=== PATIENT | male | born 1985 | race Caucasian/White ===

== ENCOUNTER 2018-02-19 12:39 | Inpatient (IN) | payer MEDICAID, SELFPAY ==
[2018-02-19 12:40] VITALS: BP 123/90; PULSE 118; RESP 16; TEMP 35.8; O2SAT 95; BMI 28.3
--- NOTE | 2018-02-19 13:11 | CT_ITS ---
STUDY: CT ABDOMEN AND PELVIS WITHOUT CONTRAST REASON FOR EXAM: Male, 32 years old. Nausea, vomiting, chills RADIATION DOSAGE (If Supplied By Facility): CTDIvol = ( 21.50 ) mGy, DLP = ( 1198.02 ) mGycm TECHNIQUE: Transaxial images were obtained from the dome of the diaphragm to the symphysis pubis without oral contrast, and without intravenous contrast. Sagittal and coronal images were reconstructed. Individualized dose optimization techniques were used for this CT. COMPARISON: None. FINDINGS: The visualized lung bases are unremarkable. The visualized portions of the heart are within normal limits. Evaluation of the abdominal viscera is limited in the absence of intravenous contrast. There is decreased attenuation of the liver consistent with steatosis. There is focal fatty sparing adjacent to the gallbladder fossa. Normal gallbladder and extrahepatic biliary system. Normal spleen. There is a small splenule. Normal pancreas. Normal bilateral adrenal glands. Normal right kidney. There is a 3 mm nonobstructing calculus within the inferior pole of the left kidney. Normal visualized stomach. There is fluid distended small bowel within the left abdomen. The distal small bowel is decompressed. The discrete transition zone is not clearly visualized. Colon is largely decompressed. There is some fluid within the rectum. There is non-visualization of the appendix. Normal abdominal aorta. Normal inferior vena cava. Normal retroperitoneum. Normal urinary bladder. Normal abdominal wall. Tarlov cysts are seen within the sacrum. CT/Abdomen/Pelvis without Cont IMPRESSION: Fluid distention of the proximal small bowel with decompressed distal small bowel. Partial/developing small bowel obstruction cannot be excluded. The transition point is not visualized. Hepatic steatosis. Additional findings, as detailed above. Electronically Signed: Kehinde Rowe DO at 14:52 EDT Tel , Service support ,
--- NOTE | 2018-02-19 13:39 | ED.DCSUM_ITS ---
- ER Visit Summary Date of Service: 02/19/18 Chief Complaint: Abdominal pain, nausea, vomiting, diarrhea History of Present Illness: The patient is a 32 M who presents with the above symptoms. Started today. He states he has vomited multiple times at home. He has crushing pain in the right side of his abdomen. He is also been having some diarrhea. No blood in either the vomit or the diarrhea. He denies any urinary symptoms. He took nothing for it at home. He denies fevers. He has had appendectomy in the past when he was child. Physical Examination: Vital signs reviewed. HEENT exam unremarkable. Heart is tachycardic and regular rhythm without murmurs. Lungs are clear to auscultation. Abdomen is soft with right-sided tenderness to palpation. Extremities reveal no edema. Skin exam normal. Neurologic exam normal. Test Results: White blood cell count 15.7. Total bilirubin 1.7. ALT 72. CAT scan reveals evidence of small bowel obstruction with dilated proximal bowel and compressed distal bowel. Emergency Department Course and Treatment: Patient was initially given Bentyl and Zofran. I did give him IV fluids for the tachycardia. After the finding of small bowel obstruction a an NG was placed. He did have some local trauma to the nose during this. At this point the patient will be admitted to the hospital after discussion with the hospitalist. Treatment Plan: [] Disposition: Admit Impression: Small bowel obstruction This note was generated with [employer] dictation software. It may contain incorrect words, spelling, and punctuation that were not noted in review of the chart prior to signing ED Disposition - Plan for ED Patient: Chief Complaint: Nausea/Vomiting/Diarrhea Referrals: Jose Esquivel DO [Primary Care Provider] -
[2018-02-19 13:45] LABS: Absolute Lymphocyte Count 1.41 X10^3/ul (0.83-4.51); Absolute Neutrophil Count 13.6 X10^3/uL (2.0-7.7); Basophil# 0.02 X10^3/uL; Basophil% 0.1 % (0-1); Eosinophil# 0.01 X10^3/uL; Eosinophils% 0.1 % (0-5); Hematocrit 52.6 % (40-54); Hemoglobin 17.9 g/dl (13.0-16.5); Lymphocyte # 1.41 X10^3/ul (4.0); Mean Corpuscular Hgb 29.7 pg (27.0-32.0); Mean Corpuscular Volume 87.4 fL (80-94); Mean Platelet Vol. 10.7 fl (6.2-12.0); Monocyte# 0.64 X10^3/uL; Monocyte% 4.1 % (0-10); Neutrophil # 13.64 X10^3/uL (2.7-7.7); Neutrophil % 86.6 % (47-70); Platelet Count 248 K/mm3 (150-450); RBC Distribution Width CV 13.4 % (11.6-14.6); RBC Distribution Width SD 43.1 fl (35.1-43.9); Red Blood Count 6.02 M/mm3 (4.6-6.2); White Blood Count 15.7 K/mm3 (4.4-11.0)
[2018-02-19] MEDS: 0.9% Normal Saline 1,000 ML 1000 ML IV (13:50)
[2018-02-19] MEDS: Dicyclomine 20 MG/2 ML Vial IM (13:50)
[2018-02-19] MEDS: Ondansetron 4 MG/2 ML Vial IV (13:50)
[2018-02-19 13:52] LABS: POSITIVE COUNT NO; POSITIVE DIFFERENTIAL NO; POSITIVE MORPHOLOGY NO
[2018-02-19 13:58] LABS: ALB/GLOB Ratio 0.8 RATIO (0.9-2.4); AST(SGOT) 27 U/L (15-37); Alanine Aminotransfer ALT/SGPT 72 U/L (16-61); Albumin, Serum 4.8 g/dL (3.2-5.0); Alkaline Phosphatase 78 U/L (45-117); Anion Gap 11 (5-15); BUN 12 mg/dL (7-18); BUN/Creat Ratio 10.7 RATIO (10-20); Calcium,Total 10.4 mg/dL (8.5-10.1); Chloride 107 mmol/L (98-107); Creatinine, Serum 1.12 mg/dL (0.70-1.30); EST Glomerular Filtration Rate 80 mL/min (>60); Est Glom Filt Rate - Afr Amer 96 mL/min (>60); Estimated Creatinine Clearance 117.12 ml/min; Globulin 5.7 g/dL (2.2-4.2); Glucose 124 mg/dL (74-106); Lipase 90 U/L (73-393); Potassium 4.5 mmol/L (3.5-5.1); Protein, Total 10.5 g/dL (6.4-8.2); Sodium Level 137 mmol/L (136-145)
--- NOTE | 2018-02-19 15:00 | RAD_ITS ---
STUDY: X-RAY - ABDOMEN/PELVIS REASON FOR EXAM: Male, 32 years old. Nasogastric tube placement. TECHNIQUE: Frontal portable upright abdomen COMPARISON: None. FINDINGS: Nasogastric tube tip lies near the esophagogastric junction and may be slightly entering the gastric fundus. The proximal port lies within the distal 3rd of the esophagus. Extension of the nasogastric tube further into the gastric fundus is recommended. No other acute lung base or upper abdominal process is evident. RAD/Abdomen Single View (Portable) IMPRESSION: A nasogastric tube tip lies near the esophagogastric junction and extension further into the stomach is recommended. Electronically Signed: Yosi Koroma, at 16:21 EDT Tel , Service support ,
[2018-02-19 15:01] VITALS: BP 143/95; PULSE 72; RESP 18; TEMP 36.8; O2SAT 98
--- NOTE | 2018-02-19 15:56 | NURSING ---
DR HAIDER IN WITH PATIENT
--- NOTE | 2018-02-19 16:02 | NURSING ---
MED SURG SBO MELIZA
--- NOTE | 2018-02-19 16:16 | HP.PCM_ITS ---
<Timbo Fuchs - Last Filed: 02/19/18 16:12> Problem List (1) SBO (small bowel obstruction) Status: Acute (2) Anxiety Status: Chronic (3) Depression Status: Chronic History of Present Illness Date of Admission: 02/19/18 Chief Complaint: abdominal pain The patient is a 32 year old M with a hx of anxiety and depression who presents to the ER with complain of abdominal pain. Pain began this AM at about 0500, he woke up with it. Pain is located over the RLQ. It has continued throughout the day. He has been nauseous and vomited at least 4 times. He has had 9-10 episodes of diarrhea. He has not been able to eat or drink anything today. He last ate last evening - crackers. He came to the ER and has had an NG tube placed with relief of his nausea, though he still has significant RLQ pain. CT shows early SBO. He denies hx of bowel obstruction. He has had an appendectomy when he was a child, denies any other abdominal surgeries. Also reports some chills at home. No flatus currently. [] Past Medical History Past Medical History (Chronic Problems): Chronic Problems Anxiety (Chronic) Depression (Chronic) Allergies onion Allergy (Verified 02/19/18 12:42) Hives PAPER TAPE Allergy (Uncoded 02/19/18 12:42) Rash SPIDERS Allergy (Uncoded 02/19/18 12:42) Unknown Home Medications: Ambulatory Orders Medication Instructions Recorded Gabapentin [Neurontin] 100 mg PO TID 02/19/18 Mirtazapine [Mirtazapine] 15 mg PO QHS 02/19/18 Propranolol HCl [Inderal (Beta 20 mg PO BID 02/19/18 Irena)] Sertraline HCl [Zoloft] 200 mg PO DAILY 02/19/18 Surgical History: appendectomy Psychiatric History: Anxiety, Depression Lives: Alone Smoking Status: Never smoker Tobacco Use: Non-smoker Alcohol: None Drugs: None - *Family History Maternal History Items: Heart Disease Paternal History Items: No pertinent history Review of Systems Constitutional: Reports: Chills. Denies: Fever, Weight Change HEENT: Denies: Head Aches, Sinus Congestion, Sinus Drainage Cardiovascular: Denies: Chest Pain, Palpitations Respiratory: Denies: Cough, Shortness of breath at rest, Sputum production Gastrointestinal: Reports: Abdominal Pain, Diarrhea, Nausea, Vomiting Genitourinary: Denies: Dysuria Musculoskeletal: Denies: Joint Pain, Joint Tenderness Skin: Denies: Rash, Wounds Neurological: Denies: Numbness, Tingling, Focal weakness Psychiatric: Denies: Anxiety, Depression, Homicidal Ideations, Suicidal Ideations Hematologic/ Lymphatic: Denies: Easy Bruising, Easy Bleeding VTE Information - Inpt Only VTE Present on Admission: No VTE Mechan Device Prophylaxis: SCD's Patient Problems: Active and Suspected Problems SBO (small bowel obstruction) (Acute) - Physical Exam General: Alert, Oriented x3, Cooperative HEENT: Atraumatic, PERRLA, EOMI, Normocephalic, - - bleeding BL nares 2/2 traumatic NG insertion. Neck: Supple, No JVD, Negative Carotid Bruits Lungs: Clear to auscultation, Normal air movement Cardiovascular: Regular rate, No murmurs Abdomen: Bowel Sounds Present, Soft, Tender - RLQ tenderness without guarding. Extremities: No edema, Capillary Refill Less than 3 Seconds Skin: No rashes, No breakdown Musculoskeletal: No Tenderness to Palpation of Joints or Extremities Neurological: Cranial nerves II-XII grossly intact Psych/Mental Status: Normal Affect, Appropriate, Alert and oriented to time, place, person, mood and affect Vital Signs Temp Pulse Resp BP Pulse Ox 98.2 F 72 18 143/95 H 98 02/19/18 15:01 02/19/18 15:01 02/19/18 15:01 02/19/18 15:01 02/19/18 15:01 Oxygen Delivery Method Room Air Weight: 238 lb 15.697 oz Body Mass Index (BMI) 28.3 Laboratory Tests Past 24 Hrs 02/19/18 02/19/18 13:35 13:35 WBC 15.7 H RBC 6.02 Hgb 17.9 H Hct 52.6 MCV 87.4 MCH 29.7 MCHC 34.0 RDW 13.4 RDW Differential 43.1 Plt Count 248 MPV 10.7 Immature Gran % (Auto) 0.100 Neut % (Auto) 86.6 H Lymph % (Auto) 9.0 L [place] % (Auto) 4.1 Eos % (Auto) 0.1 Baso % (Auto) 0.1 Absolute Neuts (auto) 13.6 H Absolute Lymphs (auto) 1.41 Total Counted Not Reportable Sodium 137 Potassium 4.5 Chloride 107 Carbon Dioxide 19.0 L Anion Gap 11 BUN 12 Creatinine 1.12 Estim Creat Clear Calc 117.12 Est GFR (MDRD) Af Amer 96 Est GFR (MDRD) Non-Af 80 BUN/Creatinine Ratio 10.7 Glucose 124 H Calcium 10.4 H Total Bilirubin 1.70 H AST 27 ALT 72 H Alkaline Phosphatase 78 Total Protein 10.5 H Albumin 4.8 Globulin 5.7 H Albumin/Globulin Ratio 0.8 L Lipase 90 Assessment/Plan All Active Problems SBO (small bowel obstruction) (Acute) 1. Early SBO - NG in place. NPO. Bowel sounds are hypoactive, pain is RLQ, tender over the same. IV fluids. IV pepcid. supportive care. He does remain tachycardic and has a significant leukocytosis. Tbili is elevated, ALT is elevated. Lipase negative. 2. Hx anx/depression - on multiple home meds, prior homicidal/suicidal ER visits. Restart as soon as possible. Will have to be held for now. DVT ppx: SCDs This patient was seen by Timbo Fuchs PA-C under the supervision of Dr. Arriola. <Miguel Angel Arriola - Last Filed: 02/19/18 17:25> Problem List (1) SBO (small bowel obstruction) Status: Acute History of Present Illness The patient is a 32 year old M developed acute abdominal pain today. Patient presented to the emergency room and was found to have small bowel obstruction on CT. Patient had NG tube placed which was traumatic and did have it with that but patient notes no significant change in his symptoms at this time. Patient states that he is probably has some small bowel obstructions in the past and was told to eat properly and those resolved spontaneously. Patient never required hospitalization for small bowel obstruction before. Patient did have an appendectomy when he was young child but no additional abdominal surgeries. [] Past Medical History Allergies onion Allergy (Verified 02/19/18 12:42) Hives PAPER TAPE Allergy (Uncoded 02/19/18 12:42) Rash SPIDERS Allergy (Uncoded 02/19/18 16:23) varies depending on species Surgical History: appendectomy, - - Signs of the patient has had spontaneous pneumothoraces requiring decortication Psychiatric History: Anxiety, Depression Lives: Alone Smoking Status: Never smoker Tobacco Use: Non-smoker Alcohol: None Drugs: None - *Family History Maternal History Items: Heart Disease Paternal History Items: No pertinent history Review of Systems Constitutional: Denies: Fever, Weight Change Eyes: Denies: Blurred vision, Double vision HEENT: Denies: Head Aches, Sinus Congestion, Sinus Drainage Cardiovascular: Denies: Chest Pain, Palpitations Respiratory: Denies: Cough, Shortness of breath at rest, Sputum production Gastrointestinal: Reports: Abdominal Pain, Diarrhea, Nausea, Vomiting Genitourinary: Denies: Dysuria Musculoskeletal: Denies: Joint Pain, Joint Tenderness Skin: Denies: Rash, Wounds Neurological: Denies: Focal weakness, Numbness, Tingling Psychiatric: Denies: Anxiety, Depression, Homicidal Ideations, Suicidal Ideations Hematologic/ Lymphatic: Denies: Easy Bruising, Easy Bleeding VTE Information - Inpt Only VTE Present on Admission: No VTE Pharm Prophylaxis ordered?: Yes - Physical Exam General: Alert, Cooperative HEENT: Atraumatic, PERRLA, EOMI, Normocephalic Lungs: Clear to auscultation, Normal air movement Cardiovascular: Regular rate, Regular Rhythm, Normal S1, No murmurs Abdomen: Soft, Hypoactive Bowel Sounds, Distended, Tender Extremities: No edema, No Calf Tenderness Skin: No rashes, No breakdown Psych/Mental Status: Normal Affect, Appropriate Vital Signs Temp Pulse Resp BP Pulse Ox 36.7 C 121 H 18 131/88 H 99 02/19/18 16:51 02/19/18 16:51 02/19/18 16:51 02/19/18 16:51 02/19/18 16:51 Oxygen Delivery Method Room Air Weight: 108.8 kg Body Mass Index (BMI) 28.4 Assessment/Plan Patient seen and examined independently. Data reviewed. I agree with the above note by the physician medical receptionist assistant. 1. Small bowel obstruction * Likely related with adhesions from patient's prior abdominal surgery which was an appendectomy when he was a child. * Conservative management at this time which will be continuing the NG, n.p.o., IV fluids, IV analgesia and antiemetics. * General surgery will be case agent fails to progress. DW Dr. Armstrong, who will see the patient in consultation. Code Visit Inpatient E&M: 12263 Init Hosp L2
[2018-02-19 16:24] VITALS: BMI 28.3
[2018-02-19 16:48] VITALS: BMI 28.4
[2018-02-19 16:51] VITALS: BP 131/88; PULSE 121; RESP 18; TEMP 36.7; O2SAT 99
[2018-02-19] MEDS: 0.9% Normal Saline 1,000 ML 125 ML IV (17:13)
--- NOTE | 2018-02-19 17:21 | PCM.CONS.GEN ---
Reason for Consult Date of Consultation: 02/19/18 Reason for Consultation: Small bowel obstruction History of Present Illness: The patient is a 32 year old M who reports that he has been having abdominal distention with no gas for the past few days. He started having nausea and vomiting tube was placed. He is complaining of right lower quadrant pain but he says that it is improved right now and it is better than when he came in. He says he has been having some diarrhea but no flatus. He has a history of appendectomy. He also reports that he had a history of some intestinal blockage in the past which resolved without surgery. Past Medical History Past Medical History (Chronic Problems): Chronic Problems Anxiety (Chronic) Depression (Chronic) Allergies onion Allergy (Verified 02/19/18 12:42) Hives PAPER TAPE Allergy (Uncoded 02/19/18 12:42) Rash SPIDERS Allergy (Uncoded 02/19/18 16:23) varies depending on species Home Medications: Ambulatory Orders Medication Instructions Recorded Gabapentin [Neurontin] 100 mg PO TID 02/19/18 Mirtazapine [Mirtazapine] 15 mg PO QHS 02/19/18 Propranolol HCl [Inderal (Beta 20 mg PO BID 02/19/18 Irena)] Sertraline HCl [Zoloft] 200 mg PO DAILY 02/19/18 Surgical History: appendectomy Psychiatric History: Anxiety, Depression Lives: Alone Smoking Status: Never smoker Tobacco Use: Non-smoker Alcohol: None Drugs: None - *Family History Maternal History Items: Heart Disease Paternal History Items: No pertinent history Review of Systems Constitutional: Denies: Anorexia, Chills, Fever Eyes: Denies: Blurred vision HEENT: Denies: Difficulty Hearing, Difficulty Swallowing Cardiovascular: Denies: Chest Pain Respiratory: Denies: Cough, Shortness of Breath Gastrointestinal: Reports: Abdominal Pain, Diarrhea, Nausea, Vomiting Genitourinary: Denies: Dysuria Musculoskeletal: Denies: Joint Tenderness Skin: Denies: Jaundice Neurological: Denies: Difficulty swallowing Psychiatric: Denies: Anxiety, Depression Hematologic/ Lymphatic: Denies: Anemia Patient Problems: Active and Suspected Problems SBO (small bowel obstruction) (Acute) - Physical Exam General: Alert, Oriented x3, Cooperative HEENT: Atraumatic, EOMI Neck: Supple Lungs: Normal air movement Cardiovascular: Regular Rhythm, Tachycardic Abdomen: Soft, Distended, Tender - Tender in the right lower quadrant. No guarding or rebound. Musculoskeletal: No Muscle Wasting Neurological: Cranial nerves II-XII grossly intact Psych/Mental Status: Normal Affect, Appropriate Vital Signs Temp Pulse Resp BP Pulse Ox 98.1 F 121 H 18 131/88 H 99 02/19/18 16:51 02/19/18 16:51 02/19/18 16:51 02/19/18 16:51 02/19/18 16:51 Oxygen Delivery Method Room Air Weight: 239 lb 13.807 oz Body Mass Index (BMI) 28.4 Clinical Impression(s) from Imaging Studies Abdomen/Pelvis CT 02/19/18 13:11 IMPRESSION: Fluid distention of the proximal small bowel with decompressed distal small bowel. Partial/developing small bowel obstruction cannot be excluded. The transition point is not visualized. Hepatic steatosis. Additional findings, as detailed above. Electronically Signed: Kehinde Rowe, DO at 14:52 EDT Tel , Service support , KUB X-Ray 02/19/18 15:00 IMPRESSION: A nasogastric tube tip lies near the esophagogastric junction and extension further into the stomach is recommended. Electronically Signed: Yosi Koroma, at 16:21 EDT Tel , Service support , Assessment/Plan All Active Problems SBO (small bowel obstruction) (Acute) 32-year-old male small bowel obstruction 1. Patient reports he has not passed any gas in a few days but he has been having some diarrhea. He has right lower quadrant pain and abdominal distention. He says he has had an intestinal blockage which resolved without surgery. 2. Plan is to keep him n.p.o. and he has an NG tube in place. I will order acute abdominal series in the morning and keep him on IV fluids. If his pain her vital signs worsen he would have indication for surgery otherwise I will treat him conservatively for a few days to see if the bowel obstruction passes. Wai Escamilla MD Pager: [facility] [address] [place] [address], [address] [place] [address] Office:
--- NOTE | 2018-02-19 17:26 | CON.PCM_ITS ---
Reason for Consult Date of Consultation: 02/19/18 Reason for Consultation: Small bowel obstruction History of Present Illness: The patient is a 32 year old M who reports that he has been having abdominal distention with no gas for the past few days. He started having nausea and vomiting tube was placed. He is complaining of right lower quadrant pain but he says that it is improved right now and it is better than when he came in. He says he has been having some diarrhea but no flatus. He has a history of appendectomy. He also reports that he had a history of some intestinal blockage in the past which resolved without surgery. Past Medical History Past Medical History (Chronic Problems): Chronic Problems Anxiety (Chronic) Depression (Chronic) Allergies onion Allergy (Verified 02/19/18 12:42) Hives PAPER TAPE Allergy (Uncoded 02/19/18 12:42) Rash SPIDERS Allergy (Uncoded 02/19/18 16:23) varies depending on species Home Medications: Ambulatory Orders Medication Instructions Recorded Gabapentin [Neurontin] 100 mg PO TID 02/19/18 Mirtazapine [Mirtazapine] 15 mg PO QHS 02/19/18 Propranolol HCl [Inderal (Beta 20 mg PO BID 02/19/18 Irena)] Sertraline HCl [Zoloft] 200 mg PO DAILY 02/19/18 Surgical History: appendectomy Psychiatric History: Anxiety, Depression Lives: Alone Smoking Status: Never smoker Tobacco Use: Non-smoker Alcohol: None Drugs: None - *Family History Maternal History Items: Heart Disease Paternal History Items: No pertinent history Review of Systems Constitutional: Denies: Anorexia, Chills, Fever Eyes: Denies: Blurred vision HEENT: Denies: Difficulty Hearing, Difficulty Swallowing Cardiovascular: Denies: Chest Pain Respiratory: Denies: Cough, Shortness of Breath Gastrointestinal: Reports: Abdominal Pain, Diarrhea, Nausea, Vomiting Genitourinary: Denies: Dysuria Musculoskeletal: Denies: Joint Tenderness Skin: Denies: Jaundice Neurological: Denies: Difficulty swallowing Psychiatric: Denies: Anxiety, Depression Hematologic/ Lymphatic: Denies: Anemia Patient Problems: Active and Suspected Problems SBO (small bowel obstruction) (Acute) - Physical Exam General: Alert, Oriented x3, Cooperative HEENT: Atraumatic, EOMI Neck: Supple Lungs: Normal air movement Cardiovascular: Regular Rhythm, Tachycardic Abdomen: Soft, Distended, Tender - Tender in the right lower quadrant. No guarding or rebound. Musculoskeletal: No Muscle Wasting Neurological: Cranial nerves II-XII grossly intact Psych/Mental Status: Normal Affect, Appropriate Vital Signs Temp Pulse Resp BP Pulse Ox 98.1 F 121 H 18 131/88 H 99 02/19/18 16:51 02/19/18 16:51 02/19/18 16:51 02/19/18 16:51 02/19/18 16:51 Oxygen Delivery Method Room Air Weight: 239 lb 13.807 oz Body Mass Index (BMI) 28.4 Clinical Impression(s) from Imaging Studies Abdomen/Pelvis CT 02/19/18 13:11 IMPRESSION: Fluid distention of the proximal small bowel with decompressed distal small bowel. Partial/developing small bowel obstruction cannot be excluded. The transition point is not visualized. Hepatic steatosis. Additional findings, as detailed above. Electronically Signed: Kehinde Rowe, DO at 14:52 EDT Tel , Service support , KUB X-Ray 02/19/18 15:00 IMPRESSION: A nasogastric tube tip lies near the esophagogastric junction and extension further into the stomach is recommended. Electronically Signed: Yosi Koroma, at 16:21 EDT Tel , Service support , Assessment/Plan All Active Problems SBO (small bowel obstruction) (Acute) 32-year-old male small bowel obstruction 1. Patient reports he has not passed any gas in a few days but he has been having some diarrhea. He has right lower quadrant pain and abdominal distention. He says he has had an intestinal blockage which resolved without surgery. 2. Plan is to keep him n.p.o. and he has an NG tube in place. I will order acute abdominal series in the morning and keep him on IV fluids. If his pain her vital signs worsen he would have indication for surgery otherwise I will treat him conservatively for a few days to see if the bowel obstruction passes. Wai Escamilla MD Pager: [facility] [address] [place] [address], [address] [place] [address] Office:
[2018-02-19 21:56] VITALS: BP 134/96; PULSE 110; RESP 16; TEMP 36.5; O2SAT 97
[2018-02-19] MEDS: Phenol/Sodium Phenolate 180ML 5 SPRAY MM (21:58)
[2018-02-20] MEDS: proMETHazine 25 MG/ML Syringe 12.5 MG IV (00:12)
[2018-02-20] MEDS: Phenol/Sodium Phenolate 180ML 5 SPRAY MM ×2 (00:36→06:45)
[2018-02-20] MEDS: 0.9% Normal Saline 1,000 ML 125 ML IV ×3 (00:36→18:22)
[2018-02-20 02:08] VITALS: BP 144/107; PULSE 103; RESP 18; TEMP 37; O2SAT 99
[2018-02-20] MEDS: Morphine 2 MG/ML Syringe IV (02:10)
[2018-02-20] MEDS: Ondansetron 4 MG/2 ML Vial IV (04:03)
[2018-02-20 05:59] LABS: Absolute Lymphocyte Count 1.62 X10^3/ul (0.83-4.51); Absolute Neutrophil Count 8.5 X10^3/uL (2.0-7.7); Basophil# 0.01 X10^3/uL; Basophil% 0.1 % (0-1); Eosinophil# 0.04 X10^3/uL; Eosinophils% 0.4 % (0-5); Hematocrit 43.7 % (40-54); Hemoglobin 14.6 g/dl (13.0-16.5); Lymphocyte # 1.62 X10^3/ul (4.0); Lymphocyte % 14.3 % (19-41); Mean Corp Hgb Conc 33.4 g/gl (32-36); Mean Corpuscular Hgb 29.9 pg (27.0-32.0); Mean Corpuscular Volume 89.4 fL (80-94); Mean Platelet Vol. 10.8 fl (6.2-12.0); Monocyte# 1.14 X10^3/uL; Monocyte% 10.1 % (0-10); Neutrophil # 8.51 X10^3/uL (2.7-7.7); Neutrophil % 74.9 % (47-70); Platelet Count 213 K/mm3 (150-450); RBC Distribution Width CV 13.9 % (11.6-14.6); RBC Distribution Width SD 45.1 fl (35.1-43.9); Red Blood Count 4.89 M/mm3 (4.6-6.2); White Blood Count 11.3 K/mm3 (4.4-11.0)
[2018-02-20 06:05] LABS: POSITIVE COUNT NO; POSITIVE DIFFERENTIAL NO; POSITIVE MORPHOLOGY NO
[2018-02-20 06:35] LABS: Anion Gap 8 (5-15); BUN 12 mg/dL (7-18); BUN/Creat Ratio 13.2 RATIO (10-20); Calcium,Total 8.5 mg/dL (8.5-10.1); Chloride 109 mmol/L (98-107); Creatinine, Serum 0.91 mg/dL (0.70-1.30); EST Glomerular Filtration Rate 101 mL/min (>60); Est Glom Filt Rate - Afr Amer 123 mL/min (>60); Estimated Creatinine Clearance 144.15 ml/min; Glucose 105 mg/dL (74-106); Potassium 4.4 mmol/L (3.5-5.1); Sodium Level 144 mmol/L (136-145)
[2018-02-20] MEDS: 0.9% NaCl Peripheral Flush Adult/Peds IV (06:45)
--- NOTE | 2018-02-20 07:38 | PCM.PN.SRG ---
Patient Problems: Active and Suspected Problems SBO (small bowel obstruction) (Acute) Subjective: The patient reports no flatus overnight. His abdominal area is sore but improved from yesterday. - Physical Exam General: Alert, Oriented x3, Cooperative, No apparent distress HEENT: Atraumatic Lungs: Normal air movement Cardiovascular: Regular Rhythm, Tachycardic Abdomen: Soft, Distended - Mildly distended, Tender - Mildly tender in the right lower quadrant with no guarding or rebound., - - NG appears bloody Musculoskeletal: No Muscle Wasting Neurological: Cranial nerves II-XII grossly intact Vital Signs Temp Pulse Resp BP Pulse Ox 98.6 F 103 H 18 144/107 H 99 02/20/18 02:08 02/20/18 02:08 02/20/18 02:08 02/20/18 02:08 02/20/18 02:08 Oxygen Delivery Method Room Air Weight: 239 lb 13.807 oz Body Mass Index (BMI) 28.4 Intake and Output for Last 24 Hours 02/18/18 02/19/18 02/20/18 23:59 23:59 23:59 Intake Total 234 / 234 1568 / 1568 Output Total 250 / 250 725 / 725 Balance -16 / -16 843 / 843 Laboratory Tests Past 24 Hrs 02/20/18 02/20/18 05:30 05:30 WBC 11.3 H RBC 4.89 Hgb 14.6 Hct 43.7 MCV 89.4 MCH 29.9 MCHC 33.4 RDW 13.9 RDW Differential 45.1 H Plt Count 213 MPV 10.8 Immature Gran % (Auto) 0.200 Neut % (Auto) 74.9 H Lymph % (Auto) 14.3 L [place] % (Auto) 10.1 H Eos % (Auto) 0.4 Baso % (Auto) 0.1 Absolute Neuts (auto) 8.5 H Absolute Lymphs (auto) 1.62 Total Counted Not Reportable Sodium 144 Potassium 4.4 Chloride 109 H Carbon Dioxide 27.0 Anion Gap 8 BUN 12 Creatinine 0.91 Estim Creat Clear Calc 144.15 Est GFR (MDRD) Af Amer 123 Est GFR (MDRD) Non-Af 101 BUN/Creatinine Ratio 13.2 Glucose 105 Calcium 8.5 Medical Necessity - Tobacco Use Smoking Status: Never smoker Tobacco Use: Non-smoker Assessment/Plan All Active Problems SBO (small bowel obstruction) (Acute) 32-year-old male with small bowel obstruction. 1. The patient's NG appears to have dark blood in it. This is likely from NG induced gastritis. He does have PPI ordered twice a day and I will stop his Lovenox. Continue NG suction. NG will be flushed and is on low intermittent. 2. The patient is getting acute abdominal series today. If there is no progression by tomorrow I will order a contrast study. The patient's abdomen is soft and mildly tender and his white count has improved. His vitals are otherwise stable besides tachycardia. 3. Continue n.p.o./IV fluids. SCDs. Encourage ambulation. Wai Escamilla MD Pager: [facility] [address] [place] [address], [address] [place] [phone] Office:
--- NOTE | 2018-02-20 07:40 | RAD_ITS ---
STUDY: X-RAY - ABDOMEN/PELVIS REASON FOR EXAM: Male, 32 years old. Small bowel obstruction TECHNIQUE: AP supine and upright views of the abdomen and pelvis. COMPARISON: 02/19/2018 FINDINGS: The enteric tube projects within the stomach. There is continued gaseous distention of small bowel loops, with some air seen within the colon. There is no demonstrated free abdominal air. The visualized liver, spleen and kidneys are grossly normal in size and morphology. Normal soft tissue structures. Normal visualized osseous structures. RAD/Abd Inc Decub and/or Erect IMPRESSION: Findings again suggest a partial/developing small bowel obstruction. No free air. An enteric tube is seen within the stomach. Electronically Signed: Kehinde Rowe DO at 8:56 EDT Tel , Service support ,
--- NOTE | 2018-02-20 07:41 | PN.SURG_ITS ---
Patient Problems: Active and Suspected Problems SBO (small bowel obstruction) (Acute) Subjective: The patient reports no flatus overnight. His abdominal area is sore but improved from yesterday. - Physical Exam General: Alert, Oriented x3, Cooperative, No apparent distress HEENT: Atraumatic Lungs: Normal air movement Cardiovascular: Regular Rhythm, Tachycardic Abdomen: Soft, Distended - Mildly distended, Tender - Mildly tender in the right lower quadrant with no guarding or rebound., - - NG appears bloody Musculoskeletal: No Muscle Wasting Neurological: Cranial nerves II-XII grossly intact Vital Signs Temp Pulse Resp BP Pulse Ox 98.6 F 103 H 18 144/107 H 99 02/20/18 02:08 02/20/18 02:08 02/20/18 02:08 02/20/18 02:08 02/20/18 02:08 Oxygen Delivery Method Room Air Weight: 239 lb 13.807 oz Body Mass Index (BMI) 28.4 Intake and Output for Last 24 Hours 02/18/18 02/19/18 02/20/18 23:59 23:59 23:59 Intake Total 234 / 234 1568 / 1568 Output Total 250 / 250 725 / 725 Balance -16 / -16 843 / 843 Laboratory Tests Past 24 Hrs 02/20/18 02/20/18 05:30 05:30 WBC 11.3 H RBC 4.89 Hgb 14.6 Hct 43.7 MCV 89.4 MCH 29.9 MCHC 33.4 RDW 13.9 RDW Differential 45.1 H Plt Count 213 MPV 10.8 Immature Gran % (Auto) 0.200 Neut % (Auto) 74.9 H Lymph % (Auto) 14.3 L [place] % (Auto) 10.1 H Eos % (Auto) 0.4 Baso % (Auto) 0.1 Absolute Neuts (auto) 8.5 H Absolute Lymphs (auto) 1.62 Total Counted Not Reportable Sodium 144 Potassium 4.4 Chloride 109 H Carbon Dioxide 27.0 Anion Gap 8 BUN 12 Creatinine 0.91 Estim Creat Clear Calc 144.15 Est GFR (MDRD) Af Amer 123 Est GFR (MDRD) Non-Af 101 BUN/Creatinine Ratio 13.2 Glucose 105 Calcium 8.5 Medical Necessity - Tobacco Use Smoking Status: Never smoker Tobacco Use: Non-smoker Assessment/Plan All Active Problems SBO (small bowel obstruction) (Acute) 32-year-old male with small bowel obstruction. 1. The patient's NG appears to have dark blood in it. This is likely from NG induced gastritis. He does have PPI ordered twice a day and I will stop his Lovenox. Continue NG suction. NG will be flushed and is on low intermittent. 2. The patient is getting acute abdominal series today. If there is no progression by tomorrow I will order a contrast study. The patient's abdomen is soft and mildly tender and his white count has improved. His vitals are otherwise stable besides tachycardia. 3. Continue n.p.o./IV fluids. SCDs. Encourage ambulation. Wai Escamilla MD Pager: [facility] [address] [place] [address], [address] [place] [phone] Office:
--- NOTE | 2018-02-20 08:25 | PCM.PN.BLA ---
Progress Note I reviewed the patient's x-rays from this morning. He still does have some dilated small bowel but he has a lot of gas in the colon at this point. I believe his obstruction is resolving and since he is having gastritis from his NG tube with bleeding I would prefer to remove the NG tube at this point. If he develops any nausea or vomiting he can be reinserted but I believe this will help his gastritis. Continue n.p.o. status until he is passing flatus. After this he can be started on clear liquids and advance as tolerated.
[2018-02-20 09:03] VITALS: BP 142/93; PULSE 90; RESP 18; TEMP 36.8; O2SAT 98
--- NOTE | 2018-02-20 09:20 | PCM.PROGNOTE ---
Patient Problems: Active and Suspected Problems SBO (small bowel obstruction) (Acute) Subjective: Chief complaint: Follow-up after admission for small bowel obstruction. Patient seen and examined. No acute events overnight. NG tube just taken out. He still complaining of discomfort and fullness in the upper abdomen. Denied nausea vomiting. Not passing gas, no bowel movement. His vital signs are stable. - Physical Exam General: Alert, Oriented x3, Cooperative, No apparent distress HEENT: Atraumatic, PERRLA, EOMI, Normocephalic Oral: Moist Mucosa, No Gingival or Mucosal Lesions/ Ulcerations Neck: Supple, No JVD, Negative Carotid Bruits, Trachea Midline, Thyroid Normal Size and Texture Lungs: Clear to auscultation, Normal air movement, No rhonchi, No wheeze, No rales Cardiovascular: Regular rate, Regular Rhythm, Normal S1, Normal S2 Abdomen: Soft, No Hepato-splenomegaly, Hyperactive Bowel Sounds, Distended, Tender Extremities: No clubbing, No cyanosis, No edema Skin: No rashes, No breakdown Lymphatic: No Cervical, Supraclavicular, or Inguinal Adenopathy Neurological: Cranial nerves II-XII grossly intact, Motor Exam 5/5 strength throughout Psych/Mental Status: Normal Affect, Appropriate, Alert and oriented to time, place, person, mood and affect Vital Signs Temp Pulse Resp BP Pulse Ox 98.3 F 90 18 142/93 H 98 02/20/18 09:03 02/20/18 09:03 02/20/18 09:03 02/20/18 09:03 02/20/18 09:03 Oxygen Delivery Method Room Air Weight: 239 lb 13.807 oz Body Mass Index (BMI) 28.4 Intake and Output for Last 24 Hours 02/18/18 02/19/18 02/20/18 23:59 23:59 23:59 Intake Total 234 / 234 1568 / 1568 Output Total 250 / 250 725 / 725 Balance -16 / -16 843 / 843 Laboratory Tests Past 24 Hrs 02/20/18 02/20/18 05:30 05:30 WBC 11.3 H RBC 4.89 Hgb 14.6 Hct 43.7 MCV 89.4 MCH 29.9 MCHC 33.4 RDW 13.9 RDW Differential 45.1 H Plt Count 213 MPV 10.8 Immature Gran % (Auto) 0.200 Neut % (Auto) 74.9 H Lymph % (Auto) 14.3 L [place] % (Auto) 10.1 H Eos % (Auto) 0.4 Baso % (Auto) 0.1 Absolute Neuts (auto) 8.5 H Absolute Lymphs (auto) 1.62 Total Counted Not Reportable Sodium 144 Potassium 4.4 Chloride 109 H Carbon Dioxide 27.0 Anion Gap 8 BUN 12 Creatinine 0.91 Estim Creat Clear Calc 144.15 Est GFR (MDRD) Af Amer 123 Est GFR (MDRD) Non-Af 101 BUN/Creatinine Ratio 13.2 Glucose 105 Calcium 8.5 Clinical Impression(s) from Imaging Studies Abdomen/Pelvis CT 02/19/18 13:11 IMPRESSION: Fluid distention of the proximal small bowel with decompressed distal small bowel. Partial/developing small bowel obstruction cannot be excluded. The transition point is not visualized. Hepatic steatosis. Additional findings, as detailed above. Electronically Signed: Kehinde Rowe DO at 14:52 EDT Tel , Service support , KUB X-Ray 02/19/18 15:00 IMPRESSION: A nasogastric tube tip lies near the esophagogastric junction and extension further into the stomach is recommended. Electronically Signed: Yosi Koroma, at 16:21 EDT Tel , Service support , Abdomen X-Ray 02/20/18 07:40 IMPRESSION: Findings again suggest a partial/developing small bowel obstruction. No free air. An enteric tube is seen within the stomach. Electronically Signed: Kehinde Rowe DO at 8:56 EDT Tel , Service support , Medical Necessity - Tobacco Use Smoking Status: Never smoker Tobacco Use: Non-smoker Assessment/Plan All Active Problems SBO (small bowel obstruction) (Acute) This is a 32 years old male patient presented to the emergency room because of abdominal pain and he was found to have small bowel obstruction. #1 small bowel obstruction: Patient had a history of appendectomy long time ago. This is likely because of adhesions. He is on IV fluids, IV pain medications and IV antiemetics. NG tube was taken out this morning. Patient still symptomatic with abdominal pain/discomfort. He has no bowel movements, no gas. X-ray abdomen from this morning still revealing findings suggestive of partial/developing small bowel obstruction. CBC and BMP reviewed, serum potassium and sodium are normal. General surgery on the case. Plan to continue same treatment, will need repeat x-ray abdomen tomorrow morning. #2 anxiety/depression: He is on mirtazapine, Zoloft and Vistaril and on hold now because he is on n.p.o. #3 DVT prophylaxis: SCDs. This note was generated with [employer] dictation software. It may contain incorrect words, spelling, and punctuation that were not noted in checking the note before signing. Code Visit Inpatient E&M: 06420 Subs Hosp L2
--- NOTE | 2018-02-20 09:25 | PN_ITS ---
Patient Problems: Active and Suspected Problems SBO (small bowel obstruction) (Acute) Subjective: Chief complaint: Follow-up after admission for small bowel obstruction. Patient seen and examined. No acute events overnight. NG tube just taken out. He still complaining of discomfort and fullness in the upper abdomen. Denied nausea vomiting. Not passing gas, no bowel movement. His vital signs are stable. - Physical Exam General: Alert, Oriented x3, Cooperative, No apparent distress HEENT: Atraumatic, PERRLA, EOMI, Normocephalic Oral: Moist Mucosa, No Gingival or Mucosal Lesions/ Ulcerations Neck: Supple, No JVD, Negative Carotid Bruits, Trachea Midline, Thyroid Normal Size and Texture Lungs: Clear to auscultation, Normal air movement, No rhonchi, No wheeze, No rales Cardiovascular: Regular rate, Regular Rhythm, Normal S1, Normal S2 Abdomen: Soft, No Hepato-splenomegaly, Hyperactive Bowel Sounds, Distended, Tender Extremities: No clubbing, No cyanosis, No edema Skin: No rashes, No breakdown Lymphatic: No Cervical, Supraclavicular, or Inguinal Adenopathy Neurological: Cranial nerves II-XII grossly intact, Motor Exam 5/5 strength throughout Psych/Mental Status: Normal Affect, Appropriate, Alert and oriented to time, place, person, mood and affect Vital Signs Temp Pulse Resp BP Pulse Ox 98.3 F 90 18 142/93 H 98 02/20/18 09:03 02/20/18 09:03 02/20/18 09:03 02/20/18 09:03 02/20/18 09:03 Oxygen Delivery Method Room Air Weight: 239 lb 13.807 oz Body Mass Index (BMI) 28.4 Intake and Output for Last 24 Hours 02/18/18 02/19/18 02/20/18 23:59 23:59 23:59 Intake Total 234 / 234 1568 / 1568 Output Total 250 / 250 725 / 725 Balance -16 / -16 843 / 843 Laboratory Tests Past 24 Hrs 02/20/18 02/20/18 05:30 05:30 WBC 11.3 H RBC 4.89 Hgb 14.6 Hct 43.7 MCV 89.4 MCH 29.9 MCHC 33.4 RDW 13.9 RDW Differential 45.1 H Plt Count 213 MPV 10.8 Immature Gran % (Auto) 0.200 Neut % (Auto) 74.9 H Lymph % (Auto) 14.3 L [place] % (Auto) 10.1 H Eos % (Auto) 0.4 Baso % (Auto) 0.1 Absolute Neuts (auto) 8.5 H Absolute Lymphs (auto) 1.62 Total Counted Not Reportable Sodium 144 Potassium 4.4 Chloride 109 H Carbon Dioxide 27.0 Anion Gap 8 BUN 12 Creatinine 0.91 Estim Creat Clear Calc 144.15 Est GFR (MDRD) Af Amer 123 Est GFR (MDRD) Non-Af 101 BUN/Creatinine Ratio 13.2 Glucose 105 Calcium 8.5 Clinical Impression(s) from Imaging Studies Abdomen/Pelvis CT 02/19/18 13:11 IMPRESSION: Fluid distention of the proximal small bowel with decompressed distal small bowel. Partial/developing small bowel obstruction cannot be excluded. The transition point is not visualized. Hepatic steatosis. Additional findings, as detailed above. Electronically Signed: Kehinde Rowe DO at 14:52 EDT Tel , Service support , KUB X-Ray 02/19/18 15:00 IMPRESSION: A nasogastric tube tip lies near the esophagogastric junction and extension further into the stomach is recommended. Electronically Signed: Yosi Koroma, at 16:21 EDT Tel , Service support , Abdomen X-Ray 02/20/18 07:40 IMPRESSION: Findings again suggest a partial/developing small bowel obstruction. No free air. An enteric tube is seen within the stomach. Electronically Signed: Kehinde Rowe DO at 8:56 EDT Tel , Service support , Medical Necessity - Tobacco Use Smoking Status: Never smoker Tobacco Use: Non-smoker Assessment/Plan All Active Problems SBO (small bowel obstruction) (Acute) This is a 32 years old male patient presented to the emergency room because of abdominal pain and he was found to have small bowel obstruction. #1 small bowel obstruction: Patient had a history of appendectomy long time ago. This is likely because of adhesions. He is on IV fluids, IV pain medications and IV antiemetics. NG tube was taken out this morning. Patient still symptomatic with abdominal pain/discomfort. He has no bowel movements, no gas. X-ray abdomen from this morning still revealing findings suggestive of partial/developing small bowel obstruction. CBC and BMP reviewed, serum potassium and sodium are normal. General surgery on the case. Plan to continue same treatment, will need repeat x-ray abdomen tomorrow morning. #2 anxiety/depression: He is on mirtazapine, Zoloft and Vistaril and on hold now because he is on n.p.o. #3 DVT prophylaxis: SCDs. This note was generated with [employer] dictation software. It may contain incorrect words, spelling, and punctuation that were not noted in checking the note before signing. Code Visit Inpatient E&M: 38001 Subs Hosp L2
--- NOTE | 2018-02-20 11:40 | CASEMGMT ---
RN TACO Face to Face with patient for initial transition planning/care coordination assessment. RN CM introduced self and role at [facility]. Patient lying in bed, alert and oriented. Patient willing to participate in assessment and is able to answer all questions appropriately. Care providers, pharmacy, and demographics verified. See link attached. Patient wishes to discharge home, denies need for home health at this time. Patient states he has no further needs or concerns at this time. CM to follow for discharge planning needs that may arise. Disposition Plan: Patient to discharge home with family support and follow-up plans in place.
--- NOTE | 2018-02-20 14:34 | CHAPLAIN ---
Type of Pastoral Visit _x__ Initial Visit ___ Follow-up Visit ___ On-call Visit ___ General Patient Visit ___ Spiritual Assessment ___ Family Conference ___ Bereavement ___ Rapid Response ___ Code Blue ___ Other (describe below) Pastoral Care Referral From _x__ Patient ___ Family ___ Nurse ___ Physician ___ Wrapper Stemmer Operator ___ Patient Care Nursing Assistant ___ Other (describe below) Sacrament/Intervention _x__ Active listening ___ Anointing ___ Mu-Ism ___ Bereavement ___ Communion _x__ Mattie exploration ___ _x__ Life review _x__ Prayer ___ Reconciliation ___ Sacrament of Sick _x__ Supportive presence ___ Wedding ___ Other (describe below) Pastoral Comments patient was mostly interested in having company to talk with during his admission; pt talked about his life and travels as well as his thoughts on jehovah's witness; time and presence given
[2018-02-20 16:43] VITALS: BP 128/85; PULSE 86; RESP 18; TEMP 36.7; O2SAT 98
[2018-02-20 20:38] VITALS: BP 120/77; PULSE 81; RESP 16; TEMP 37.1; O2SAT 94
[2018-02-21] MEDS: 0.9% Normal Saline 1,000 ML 125 ML IV ×3 (02:31→21:00)
[2018-02-21 02:32] VITALS: BP 128/84; PULSE 64; RESP 16; TEMP 36.7; O2SAT 97
--- NOTE | 2018-02-21 05:55 | RAD_ITS ---
STUDY: X-RAY - ABDOMEN/PELVIS REASON FOR EXAM: Male, 32 years old. Small bowel obstruction TECHNIQUE: 2 views COMPARISON: None. FINDINGS: There is some prominence of both small and large bowels. Paralytic ileus is suspected. There is no free intraperitoneal air. No abnormal calcifications identified in the kidneys. The bones and joints are unremarkable RAD/Abdomen Single View (Portable) IMPRESSION: Mild ileus. No evidence of small bowel obstruction Electronically Signed: Edinson Quiñones, at 5:57 EDT Tel , Service support ,
[2018-02-21 06:49] LABS: Absolute Lymphocyte Count 1.79 X10^3/ul (0.83-4.51); Absolute Neutrophil Count 4.1 X10^3/uL (2.0-7.7); Basophil# 0.01 X10^3/uL; Basophil% 0.2 % (0-1); Eosinophil# 0.08 X10^3/uL; Eosinophils% 1.2 % (0-5); Hematocrit 40.5 % (40-54); Hemoglobin 12.8 g/dl (13.0-16.5); Lymphocyte # 1.79 X10^3/ul (4.0); Lymphocyte % 27.4 % (19-41); Mean Corp Hgb Conc 31.6 g/gl (32-36); Mean Corpuscular Hgb 29.4 pg (27.0-32.0); Mean Corpuscular Volume 92.9 fL (80-94); Mean Platelet Vol. 10.6 fl (6.2-12.0); Monocyte# 0.57 X10^3/uL; Monocyte% 8.7 % (0-10); Neutrophil # 4.08 X10^3/uL (2.7-7.7); Neutrophil % 62.3 % (47-70); Platelet Count 131 K/mm3 (150-450); RBC Distribution Width CV 13.8 % (11.6-14.6); RBC Distribution Width SD 46.6 fl (35.1-43.9); Red Blood Count 4.36 M/mm3 (4.6-6.2); White Blood Count 6.5 K/mm3 (4.4-11.0)
[2018-02-21 06:56] LABS: POSITIVE COUNT NO; POSITIVE DIFFERENTIAL NO; POSITIVE MORPHOLOGY NO
[2018-02-21 07:09] LABS: ALB/GLOB Ratio 0.7 RATIO (0.9-2.4); AST(SGOT) 24 U/L (15-37); Alanine Aminotransfer ALT/SGPT 40 U/L (16-61); Albumin, Serum 2.7 g/dL (3.2-5.0); Alkaline Phosphatase 47 U/L (45-117); Anion Gap 9 (5-15); BUN 11 mg/dL (7-18); BUN/Creat Ratio 17.9 RATIO (10-20); Chloride 112 mmol/L (98-107); Creatinine, Serum 0.61 mg/dL (0.70-1.30); EST Glomerular Filtration Rate 159 mL/min (>60); Est Glom Filt Rate - Afr Amer 193 mL/min (>60); Estimated Creatinine Clearance 215.04 ml/min; Globulin 3.8 g/dL (2.2-4.2); Glucose 83 mg/dL (74-106); Magnesium 1.9 mg/dL (1.6-2.6); Phosphorus 2.5 mg/dL (2.5-4.9); Potassium 4.2 mmol/L (3.5-5.1); Protein, Total 6.5 g/dL (6.4-8.2); Sodium Level 141 mmol/L (136-145)
--- NOTE | 2018-02-21 08:17 | PN.SURG_ITS ---
Patient Problems: Active and Suspected Problems SBO (small bowel obstruction) (Acute) Subjective: Patient reports some upper abdominal discomfort but no flatus. - Physical Exam General: Alert, Oriented x3 HEENT: Atraumatic Lungs: Normal air movement Cardiovascular: Regular rate, Regular Rhythm Abdomen: Soft, Non-Distended, Tender - Mild Abdominal tenderness Skin: No rashes Musculoskeletal: No Muscle Wasting Vital Signs Temp Pulse Resp BP Pulse Ox 98.1 F 64 16 128/84 H 97 02/21/18 02:32 02/21/18 02:32 02/21/18 02:32 02/21/18 02:32 02/21/18 02:32 Oxygen Delivery Method Room Air Weight: 239 lb 13.807 oz Body Mass Index (BMI) 28.4 Intake and Output for Last 24 Hours 02/19/18 02/20/18 02/21/18 23:59 23:59 23:59 Intake Total 234 / 234 3078 / 3078 1598 / 1598 Output Total 250 / 250 725 / 725 Balance - / -16 2353 / 2353 1598 / 1598 Laboratory Tests Past 24 Hrs 02/21/18 02/21/18 06:24 06:24 WBC 6.5 RBC 4.36 L Hgb 12.8 L Hct 40.5 MCV 92.9 MCH 29.4 MCHC 31.6 L RDW 13.8 RDW Differential 46.6 H Plt Count 131 L MPV 10.6 Immature Gran % (Auto) 0.200 Neut % (Auto) 62.3 Lymph % (Auto) 27.4 [place] % (Auto) 8.7 Eos % (Auto) 1.2 Baso % (Auto) 0.2 Absolute Neuts (auto) 4.1 Absolute Lymphs (auto) 1.79 Total Counted Not Reportable Sodium 141 Potassium 4.2 Chloride 112 H Carbon Dioxide 20.0 L Anion Gap 9 BUN 11 Creatinine 0.61 L Estim Creat Clear Calc 215.04 Est GFR (MDRD) Af Amer 193 Est GFR (MDRD) Non-Af 159 BUN/Creatinine Ratio 17.9 Glucose 83 Calcium 8.0 L Phosphorus 2.5 Magnesium 1.9 Total Bilirubin 2.40 H AST 24 ALT 40 Alkaline Phosphatase 47 Total Protein 6.5 Albumin 2.7 L Globulin 3.8 Albumin/Globulin Ratio 0.7 L Clinical Impression(s) from Imaging Studies Abdomen X-Ray 02/20/18 07:40 IMPRESSION: Findings again suggest a partial/developing small bowel obstruction. No free air. An enteric tube is seen within the stomach. Electronically Signed: Kehindetate Rowe DO at 8:56 EDT Tel , Service support , KUB X-Ray 02/21/18 05:55 IMPRESSION: Mild ileus. No evidence of small bowel obstruction Electronically Signed: Edinson Quiñones, at 5:57 EDT Tel , Service support , Medical Necessity - Tobacco Use Smoking Status: Never smoker Tobacco Use: Non-smoker Assessment/Plan All Active Problems SBO (small bowel obstruction) (Acute) 32-year-old male with small bowel obstruction resolving 1. The patient's acute abdominal series appears improved. He has gas throughout his colon and no small bowel dilation. Once he passes flatus he can be started on a clear liquid diet and advance as tolerated and then discharged. 2. The patient was having epigastric tenderness but he was also having bloody NG output. I suspect he is having gastritis from the NG tube. The NG tube has been removed and he has been started on twice a day PPI. The epigastric pain will resolve once the gastritis has healed. 3. His total bilirubin is elevated and this might be from hemolysis from the NG tube. The rest of his LFTs are normal. His white count has resolved. I do not suspect gallbladder etiology. Wai Escamilla MD Pager: [facility] [address] [place] [address], [address] [place] [address] Office:
--- NOTE | 2018-02-21 09:00 | PCM.PROGNOTE ---
Patient Problems: Active and Suspected Problems SBO (small bowel obstruction) (Acute) Subjective: Chief complaint: Follow-up after admission for small bowel obstruction. Patient seen and examined. No acute events overnight. Abdominal pain and discomfort is getting better, no more nausea vomiting. X-ray abdomen revealed mild ileus, no obstruction. Vital signs are stable. - Physical Exam General: Alert, Oriented x3, Cooperative, No apparent distress HEENT: Atraumatic, PERRLA, EOMI, Normocephalic Oral: Moist Mucosa, No Gingival or Mucosal Lesions/ Ulcerations Neck: Supple, No JVD, Negative Carotid Bruits, Trachea Midline, Thyroid Normal Size and Texture Lungs: Clear to auscultation, No rhonchi, No wheeze, No rales, Diminished Cardiovascular: Regular rate, Regular Rhythm, Normal S1, Normal S2, PMI Normal Abdomen: Bowel Sounds Present, Soft, Non-Distended, No Hepato-splenomegaly, Tender - Minimal tenderness. Extremities: No clubbing, No cyanosis, No edema Skin: No rashes, No breakdown Lymphatic: No Cervical, Supraclavicular, or Inguinal Adenopathy Neurological: Cranial nerves II-XII grossly intact, Neuro grossly intact Psych/Mental Status: Normal Affect, Appropriate, Alert and oriented to time, place, person, mood and affect Vital Signs Temp Pulse Resp BP Pulse Ox 98.1 F 64 16 128/84 H 97 02/21/18 02:32 02/21/18 02:32 02/21/18 02:32 02/21/18 02:32 02/21/18 02:32 Oxygen Delivery Method Room Air Weight: 239 lb 13.807 oz Body Mass Index (BMI) 28.4 Intake and Output for Last 24 Hours 02/19/18 02/20/18 02/21/18 23:59 23:59 23:59 Intake Total 234 / 234 3078 / 3078 1598 / 1598 Output Total 250 / 250 725 / 725 Balance -16 / -16 2353 / 2353 1598 / 1598 Laboratory Tests Past 24 Hrs 02/21/18 02/21/18 06:24 06:24 WBC 6.5 RBC 4.36 L Hgb 12.8 L Hct 40.5 MCV 92.9 MCH 29.4 MCHC 31.6 L RDW 13.8 RDW Differential 46.6 H Plt Count 131 L MPV 10.6 Immature Gran % (Auto) 0.200 Neut % (Auto) 62.3 Lymph % (Auto) 27.4 [place] % (Auto) 8.7 Eos % (Auto) 1.2 Baso % (Auto) 0.2 Absolute Neuts (auto) 4.1 Absolute Lymphs (auto) 1.79 Total Counted Not Reportable Sodium 141 Potassium 4.2 Chloride 112 H Carbon Dioxide 20.0 L Anion Gap 9 BUN 11 Creatinine 0.61 L Estim Creat Clear Calc 215.04 Est GFR (MDRD) Af Amer 193 Est GFR (MDRD) Non-Af 159 BUN/Creatinine Ratio 17.9 Glucose 83 Calcium 8.0 L Phosphorus 2.5 Magnesium 1.9 Total Bilirubin 2.40 H AST 24 ALT 40 Alkaline Phosphatase 47 Total Protein 6.5 Albumin 2.7 L Globulin 3.8 Albumin/Globulin Ratio 0.7 L Clinical Impression(s) from Imaging Studies KUB X-Ray 02/21/18 05:55 IMPRESSION: Mild ileus. No evidence of small bowel obstruction Electronically Signed: Edinson Quiñones, at 5:57 EDT Tel , Service support , Medical Necessity - Tobacco Use Smoking Status: Never smoker Tobacco Use: Non-smoker Assessment/Plan All Active Problems SBO (small bowel obstruction) (Acute) This is a 32 years old male patient presented to the emergency room because of abdominal pain and he was found to have small bowel obstruction. #1 small bowel obstruction: He is on IV fluids, IV pain medications and IV antiemetics. NG tube taken out yesterday. Patient had a history of appendectomy long time ago. This is likely because of adhesions. Symptoms are improving, less abdominal pain, no more nausea vomiting. X-ray abdomen from today revealed mild ileus, no obstruction. Plan to continue same treatment, start clear liquids once patient passed gas and advance as tolerated. #2 anxiety/depression: He is on mirtazapine, Zoloft and Vistaril and on hold now because he is on n.p.o. #3 DVT prophylaxis: SCDs. This note was generated with [employer] software. It may contain incorrect words, spelling, and punctuation that were not noted in checking the note before signing. Code Visit Inpatient E&M: 76056 Subs Hosp L2
--- NOTE | 2018-02-21 09:03 | PN_ITS ---
Patient Problems: Active and Suspected Problems SBO (small bowel obstruction) (Acute) Subjective: Chief complaint: Follow-up after admission for small bowel obstruction. Patient seen and examined. No acute events overnight. Abdominal pain and discomfort is getting better, no more nausea vomiting. X-ray abdomen revealed mild ileus, no obstruction. Vital signs are stable. - Physical Exam General: Alert, Oriented x3, Cooperative, No apparent distress HEENT: Atraumatic, PERRLA, EOMI, Normocephalic Oral: Moist Mucosa, No Gingival or Mucosal Lesions/ Ulcerations Neck: Supple, No JVD, Negative Carotid Bruits, Trachea Midline, Thyroid Normal Size and Texture Lungs: Clear to auscultation, No rhonchi, No wheeze, No rales, Diminished Cardiovascular: Regular rate, Regular Rhythm, Normal S1, Normal S2, PMI Normal Abdomen: Bowel Sounds Present, Soft, Non-Distended, No Hepato-splenomegaly, Tender - Minimal tenderness. Extremities: No clubbing, No cyanosis, No edema Skin: No rashes, No breakdown Lymphatic: No Cervical, Supraclavicular, or Inguinal Adenopathy Neurological: Cranial nerves II-XII grossly intact, Neuro grossly intact Psych/Mental Status: Normal Affect, Appropriate, Alert and oriented to time, place, person, mood and affect Vital Signs Temp Pulse Resp BP Pulse Ox 98.1 F 64 16 128/84 H 97 02/21/18 02:32 02/21/18 02:32 02/21/18 02:32 02/21/18 02:32 02/21/18 02:32 Oxygen Delivery Method Room Air Weight: 239 lb 13.807 oz Body Mass Index (BMI) 28.4 Intake and Output for Last 24 Hours 02/19/18 02/20/18 02/21/18 23:59 23:59 23:59 Intake Total 234 / 234 3078 / 3078 1598 / 1598 Output Total 250 / 250 725 / 725 Balance -16 / -16 2353 / 2353 1598 / 1598 Laboratory Tests Past 24 Hrs 02/21/18 02/21/18 06:24 06:24 WBC 6.5 RBC 4.36 L Hgb 12.8 L Hct 40.5 MCV 92.9 MCH 29.4 MCHC 31.6 L RDW 13.8 RDW Differential 46.6 H Plt Count 131 L MPV 10.6 Immature Gran % (Auto) 0.200 Neut % (Auto) 62.3 Lymph % (Auto) 27.4 [place] % (Auto) 8.7 Eos % (Auto) 1.2 Baso % (Auto) 0.2 Absolute Neuts (auto) 4.1 Absolute Lymphs (auto) 1.79 Total Counted Not Reportable Sodium 141 Potassium 4.2 Chloride 112 H Carbon Dioxide 20.0 L Anion Gap 9 BUN 11 Creatinine 0.61 L Estim Creat Clear Calc 215.04 Est GFR (MDRD) Af Amer 193 Est GFR (MDRD) Non-Af 159 BUN/Creatinine Ratio 17.9 Glucose 83 Calcium 8.0 L Phosphorus 2.5 Magnesium 1.9 Total Bilirubin 2.40 H AST 24 ALT 40 Alkaline Phosphatase 47 Total Protein 6.5 Albumin 2.7 L Globulin 3.8 Albumin/Globulin Ratio 0.7 L Clinical Impression(s) from Imaging Studies KUB X-Ray 02/21/18 05:55 IMPRESSION: Mild ileus. No evidence of small bowel obstruction Electronically Signed: Edinson Quiñones, at 5:57 EDT Tel , Service support , Medical Necessity - Tobacco Use Smoking Status: Never smoker Tobacco Use: Non-smoker Assessment/Plan All Active Problems SBO (small bowel obstruction) (Acute) This is a 32 years old male patient presented to the emergency room because of abdominal pain and he was found to have small bowel obstruction. #1 small bowel obstruction: He is on IV fluids, IV pain medications and IV antiemetics. NG tube taken out yesterday. Patient had a history of appendectomy long time ago. This is likely because of adhesions. Symptoms are improving, less abdominal pain, no more nausea vomiting. X-ray abdomen from today revealed mild ileus, no obstruction. Plan to continue same treatment, start clear liquids once patient passed gas and advance as tolerated. #2 anxiety/depression: He is on mirtazapine, Zoloft and Vistaril and on hold now because he is on n.p.o. #3 DVT prophylaxis: SCDs. This note was generated with [employer] software. It may contain incorrect words, spelling, and punctuation that were not noted in checking the note before signing. Code Visit Inpatient E&M: 61370 Subs Hosp L2
[2018-02-21 09:39] VITALS: BP 136/91; PULSE 61; RESP 16; TEMP 36.7; O2SAT 100
[2018-02-21 14:03] VITALS: BP 124/78; PULSE 60; RESP 16; TEMP 36.6; O2SAT 99
--- NOTE | 2018-02-21 20:45 | NURSING ---
Provided patient with chicken broth and jello, pt understands he is now able to consume clear liquids. Pt encouraged to continue to ambulate in hallways.
[2018-02-21 21:00] VITALS: BP 133/76; PULSE 71; RESP 16; TEMP 36.5; O2SAT 95
[2018-02-22 02:30] VITALS: BP 130/71; PULSE 61; RESP 16; TEMP 36.6; O2SAT 96
[2018-02-22] MEDS: 0.9% Normal Saline 1,000 ML 125 ML IV (06:03)
--- NOTE | 2018-02-22 09:13 | PCM.DC ---
- Discharge Diagnoses Current Active Problems: Current Active and Chronic Problems SBO (small bowel obstruction) (Acute) Anxiety (Chronic) Depression (Chronic) You will use the following diet at home:: Regular, Other - Light diet, advance as tolerated. Your food should be the consistency of: Regular Discharge Activity: Return to Normal Activity Weight Bearing Status: Full weight bearing Call your doctor if you observe: Fever of 101 or Higher, Inability to have a bowel movement, Shortness of breath, Dizziness, Fainting spells, Chest pain, Increased palpitations (irregular heartbeat), Uncontrolled pain Instructions: Small Bowel Obstruction Allergies/Adverse Reactions: Allergies onion Allergy (Verified 02/19/18 12:42) Hives PAPER TAPE Allergy (Uncoded 02/19/18 12:42) Rash SPIDERS Allergy (Uncoded 02/19/18 16:23) varies depending on species Medications to take at Discharge Gabapentin [Neurontin] 100 mg PO TID 02/19/18 Mirtazapine 15 mg PO QHS 02/19/18 Propranolol HCl [Inderal (Beta Irena)] 20 mg PO BID 02/19/18 Sertraline HCl [Zoloft] 200 mg PO DAILY 02/19/18 hydrOXYzine pamoate capsule [Vistaril pamoate capsule] 25 mg PO BID PRN PRN 02/19/18 Primary Care Physician: Jose Esquivel DO [Primary Care Provider] - Please follow up with your Primary Care Physician in: 2 weeks. Test Results: Test results from this visit will be discussed in further detail at your follow-up appointment, if applicable.
--- NOTE | 2018-02-22 09:17 | PCM.PN.SRG ---
Patient Problems: Active and Suspected Problems SBO (small bowel obstruction) (Acute) Subjective: Patient reports no abdominal pain this morning. He is passing flatus. He did tolerate clear liquids last night. - Physical Exam General: Alert, Cooperative Lungs: Normal air movement, No rhonchi Cardiovascular: Regular rate, Regular Rhythm Abdomen: Soft, Non Tender, Non-Distended Vital Signs Temp Pulse Resp BP Pulse Ox 97.9 F 61 16 130/71 H 96 02/22/18 02:30 02/22/18 02:30 02/22/18 02:30 02/22/18 02:30 02/22/18 02:30 Oxygen Delivery Method Room Air Weight: 239 lb 13.807 oz Body Mass Index (BMI) 28.4 Intake and Output for Last 24 Hours 02/20/18 02/21/18 02/22/18 23:59 23:59 23:59 Intake Total 3078 / 3078 3711 / 3711 891 / 891 Output Total 725 / 725 900 / 900 300 / 300 Balance 2353 / 2353 2811 / 2811 591 / 591 Medical Necessity - Tobacco Use Smoking Status: Never smoker Tobacco Use: Non-smoker Assessment/Plan All Active Problems SBO (small bowel obstruction) (Acute) 32-year-old male with resolving small bowel obstruction 1. Patient tolerated clear liquids and is placing flatus. I will advance his diet. If he tolerates a regular diet he may be discharged home. 2. I resumed his oral medications from home and change his Protonix to oral. Wai Escamilla MD Pager: [facility] [address] [place] [address], [address] [place] [address] Office:
[2018-02-22 09:33] VITALS: BP 122/78; PULSE 56; RESP 16; TEMP 36.7; O2SAT 98
[2018-02-22] MEDS: Pantoprazole Sodium 20 MG Tablet PO (09:46)
[2018-02-22] MEDS: Sertraline 100 MG Tablet 200 MG PO (10:39)
[2018-02-22] MEDS: Propranolol 10 MG Tablet 20 MG PO (10:39)
[2018-02-22 13:37] VITALS: BP 126/83; PULSE 67; RESP 16; TEMP 36.7; O2SAT 98
--- NOTE | 2018-02-22 15:03 | PCM.DC.SUM ---
Discharge Date and Diagnosis - Problem List Patient Problems: Active and Suspected Problems SBO (small bowel obstruction) (Acute) Date of Admission: 02/19/18 Date of Discharge: 02/22/18 - Primary Discharge Diagnosis Active and Suspected Problems SBO (small bowel obstruction) (Acute) - Secondary Discharge Diagnosis Chronic Problems Anxiety (Chronic) Depression (Chronic) Hospital Course and Treatment Imaging Results: Clinical Impression(s) from Imaging Studies Abdomen/Pelvis CT 02/19/18 13:11 IMPRESSION: Fluid distention of the proximal small bowel with decompressed distal small bowel. Partial/developing small bowel obstruction cannot be excluded. The transition point is not visualized. Hepatic steatosis. Additional findings, as detailed above. Electronically Signed: Kehinde Rowe DO at 14:52 EDT Tel , Service support , KUB X-Ray 02/19/18 15:00 IMPRESSION: A nasogastric tube tip lies near the esophagogastric junction and extension further into the stomach is recommended. Electronically Signed: Yosi Koroma, at 16:21 EDT Tel , Service support , Abdomen X-Ray 02/20/18 07:40 IMPRESSION: Findings again suggest a partial/developing small bowel obstruction. No free air. An enteric tube is seen within the stomach. Electronically Signed: Kehinde Roew DO at 8:56 EDT Tel , Service support , KUB X-Ray 02/21/18 05:55 IMPRESSION: Mild ileus. No evidence of small bowel obstruction Electronically Signed: Edinson Quiñones, at 5:57 EDT Tel , Service support , Dr. campos, general surgery. Operations: None Procedures: None Summary of Care Provided: Patient seen and examined on the day of discharge and appeared to be stable to be discharged home. He has been passing flatus and tolerating full liquid diet. His vital signs are stable. Today, his diet advanced to regular diet and he did okay. - Physical Exam General: Alert, Oriented x3, Cooperative, No apparent distress. HEENT: Atraumatic, PERRLA, EOMI. Neck: Supple, No JVD, Negative Carotid Bruits, Trachea Midline, Thyroid Normal. Lungs: Clear to auscultation, Normal air movement, No rhonchi, No wheeze, No rales. Cardiovascular: Regular rate, Regular Rhythm, Normal S1, Normal S2, PMI Normal. Abdomen: Bowel Sounds Present, Soft, Non Tender, Non-Distended, No Hepato-splenomegaly. Extremities: No clubbing, No cyanosis, No edema Skin: No rashes, No breakdown Neurological: Neuro grossly intact Vital Signs are stable. Hospital course: The patient is a 32 year old M admitted because of abdominal pain and he was found to have small bowel obstruction. CT scan abdomen and pelvis without contrast revealed findings consistent with proximal small bowel obstruction. Patient had a history of appendectomy long time ago and this bowel obstruction likely due to adhesions. He was treated conservatively with NG tube, IV fluids, IV antiemetics, IV pain medications and he was kept on n.p.o. for 2 days. Serial KUBs were performed. With treatment, patient was able to pass gas and his symptoms improved. Repeat KUB revealed mild ileus without evidence of small bowel obstruction. Patient tolerated regular diet. He was discharged home in a stable medical condition, recommended light diet and advance as tolerated, continued on his chronic home medications without any changes, recommended follow-up with PCP in 2 weeks. Discharge Activity: Return to Normal Activity Weight Bearing Status: Full weight bearing Call your doctor if you observe: Fever of 101 or Higher, Inability to have a bowel movement, Shortness of breath, Dizziness, Fainting spells, Chest pain, Increased palpitations (irregular heartbeat), Uncontrolled pain Home Medications: Medications to take at Discharge Gabapentin [Neurontin] 100 mg PO TID 02/19/18 Mirtazapine 15 mg PO QHS 02/19/18 Propranolol HCl [Inderal (Beta Irena)] 20 mg PO BID 02/19/18 Sertraline HCl [Zoloft] 200 mg PO DAILY 02/19/18 hydrOXYzine pamoate capsule [Vistaril pamoate capsule] 25 mg PO BID PRN PRN 02/19/18 Primary Care Physician: Jose Esquivel DO [Primary Care Provider] - Please follow up with your Primary Care Physician in: 2 weeks. Patient Instructions: Small Bowel Obstruction Disposition: Home Minutes spent on discharge:: 26 Patient Condition:: Stable Medical Necessity - Tobacco Use Smoking Status: Never smoker Tobacco Use: Non-smoker Meaningful Use Info Meaningful Use Diagnoses (Choose all that apply): None applicable Code Visit Inpatient E&M: 43680 Disch Hosp
--- NOTE | 2018-02-22 15:07 | DS.PCM_ITS ---
Discharge Date and Diagnosis - Problem List Patient Problems: Active and Suspected Problems SBO (small bowel obstruction) (Acute) Date of Admission: 02/19/18 Date of Discharge: 02/22/18 - Primary Discharge Diagnosis Active and Suspected Problems SBO (small bowel obstruction) (Acute) - Secondary Discharge Diagnosis Chronic Problems Anxiety (Chronic) Depression (Chronic) Hospital Course and Treatment Imaging Results: Clinical Impression(s) from Imaging Studies Abdomen/Pelvis CT 02/19/18 13:11 IMPRESSION: Fluid distention of the proximal small bowel with decompressed distal small bowel. Partial/developing small bowel obstruction cannot be excluded. The transition point is not visualized. Hepatic steatosis. Additional findings, as detailed above. Electronically Signed: Kehinde Rowe DO at 14:52 EDT Tel , Service support , KUB X-Ray 02/19/18 15:00 IMPRESSION: A nasogastric tube tip lies near the esophagogastric junction and extension further into the stomach is recommended. Electronically Signed: Yosi Koroma, at 16:21 EDT Tel , Service support , Abdomen X-Ray 02/20/18 07:40 IMPRESSION: Findings again suggest a partial/developing small bowel obstruction. No free air. An enteric tube is seen within the stomach. Electronically Signed: Kehinde Rowe DO at 8:56 EDT Tel , Service support , KUB X-Ray 02/21/18 05:55 IMPRESSION: Mild ileus. No evidence of small bowel obstruction Electronically Signed: Edinson Quiñones, at 5:57 EDT Tel , Service support , Dr. campos, general surgery. Operations: None Procedures: None Summary of Care Provided: Patient seen and examined on the day of discharge and appeared to be stable to be discharged home. He has been passing flatus and tolerating full liquid diet. His vital signs are stable. Today, his diet advanced to regular diet and he did okay. - Physical Exam General: Alert, Oriented x3, Cooperative, No apparent distress. HEENT: Atraumatic, PERRLA, EOMI. Neck: Supple, No JVD, Negative Carotid Bruits, Trachea Midline, Thyroid Normal. Lungs: Clear to auscultation, Normal air movement, No rhonchi, No wheeze, No rales. Cardiovascular: Regular rate, Regular Rhythm, Normal S1, Normal S2, PMI Normal. Abdomen: Bowel Sounds Present, Soft, Non Tender, Non-Distended, No Hepato- splenomegaly. Extremities: No clubbing, No cyanosis, No edema Skin: No rashes, No breakdown Neurological: Neuro grossly intact Vital Signs are stable. Hospital course: The patient is a 32 year old M admitted because of abdominal pain and he was found to have small bowel obstruction. CT scan abdomen and pelvis without contrast revealed findings consistent with proximal small bowel obstruction. Patient had a history of appendectomy long time ago and this bowel obstruction likely due to adhesions. He was treated conservatively with NG tube, IV fluids , IV antiemetics, IV pain medications and he was kept on n.p.o. for 2 days. Serial KUBs were performed. With treatment, patient was able to pass gas and his symptoms improved. Repeat KUB revealed mild ileus without evidence of small bowel obstruction. Patient tolerated regular diet. He was discharged home in a stable medical condition, recommended light diet and advance as tolerated, continued on his chronic home medications without any changes, recommended follow-up with PCP in 2 weeks. Discharge Activity: Return to Normal Activity Weight Bearing Status: Full weight bearing Call your doctor if you observe: Fever of 101 or Higher, Inability to have a bowel movement, Shortness of breath, Dizziness, Fainting spells, Chest pain, Increased palpitations (irregular heartbeat), Uncontrolled pain Home Medications: Medications to take at Discharge Gabapentin [Neurontin] 100 mg PO TID 02/19/18 Mirtazapine 15 mg PO QHS 02/19/18 Propranolol HCl [Inderal (Beta Irena)] 20 mg PO BID 02/19/18 Sertraline HCl [Zoloft] 200 mg PO DAILY 02/19/18 hydrOXYzine pamoate capsule [Vistaril pamoate capsule] 25 mg PO BID PRN PRN 01/01 Primary Care Physician: Jose Esquivel DO [Primary Care Provider] - Please follow up with your Primary Care Physician in: 2 weeks. Patient Instructions: Small Bowel Obstruction Disposition: Home Minutes spent on discharge:: 26 Patient Condition:: Stable Medical Necessity - Tobacco Use Smoking Status: Never smoker Tobacco Use: Non-smoker Meaningful Use Info Meaningful Use Diagnoses (Choose all that apply): None applicable Code Visit Inpatient E&M: 56517 Disch Hosp
== END 2018-02-22 14:50 | disposition home or self-care (01) | DRG 180 ==
LOC: ED 15:22 → MS3 16:19
PROVIDERS: Surgery; Emergency Provider Emergency Medicine; Family Provider Student in an Organized Health Care Education/Training Program; PCP Student in an Organized Health Care Education/Training Program; Visit Provider Hospitalist
DX: K56.50 Intestinal adhesions [bands], unspecified as to partial versus complete obstruction (principal); K29.61 Other gastritis with bleeding; F41.9 Anxiety disorder, unspecified; F32.9 Major depressive disorder, single episode, unspecified
CPT/HCPCS: 36415; 74018; 74019; 74176; 80048; 80053; 83690; 83735; 84100; 85025; 97802; 99281; J7030; A4216; J2405

== ENCOUNTER → 2019-04-17 | Outpatient (CLI) | payer MEDICAID, SELFPAY ==
--- NOTE | 2019-04-17 12:15 | EKG12_ITS ---
Test Reason : CUSTODIAL DRUG THERA Blood Pressure : / mmHG Vent. Rate : 079 BPM Atrial Rate : 079 BPM P-R Int : 152 ms QRS Dur : 098 ms QT Int : 380 ms P-R-T Axes : 024 -20 005 degrees QTc Int : 435 ms Normal sinus rhythm Voltage criteria for left ventricular hypertrophy Abnormal ECG Confirmed by ALBERTINA ACEVES, MARIA ISABEL ([id number]), offline editor DARCY BAILEY ([id number]) on 04/19/2019 11:03:00 AM Referred By: OUT DOCTOR Confirmed By:MARIA ISABEL ENG MD
== END | disposition home or self-care (01) ==
DX: Z79.899 Other long term (current) drug therapy (principal)
CPT/HCPCS: 93005

== ENCOUNTER 2020-02-07 15:37 | Emergency (ER) | payer MEDICAID, SELFPAY ==
[2020-02-07 15:39] VITALS: BP 147/98; PULSE 150; RESP 16; TEMP 36.9; O2SAT 93; BMI 28.3
--- NOTE | 2020-02-07 15:59 | ED.DCSUM_ITS ---
History of Present Illness Chief Complaint: Nausea/Vomiting/Diarrhea Informant: Patient - Abdominal Pain/Flank Pain Onset: Days - 3 Context: Gradual Onset Timing: Intermittent Quality: Cramping Location: LUQ Current Severity: Mild Maximum Severity: Mild Worsened by: Nothing Relieved by: Nothing - Nausea/Vomiting/Emesis GI Symptom: Nausea, Vomiting Quality: Nonbilious, Blood streaks - only last time today. Negative for: Coffee ground Episodes: 4 - per day - Diarrhea/Melena/Hematochezia GI Symptom: Diarrhea. Negative for: Melena, Hematochezia Onset: Days - 3 Stool Quality: Watery - and clear. Negative for: Black, Maroon, JORGE per rectum Episodes: 10 - or more per day Associated Symptoms: Negative for: Dysuria, Frequency, Hematuria, Urgency Narrative: Patient presents saying this is the third time I have had the stomach flu this year. He started having vomiting and diarrhea 3 days ago, the last time he vomited today, there were streaks of blood in it, which is what prompted him to come. For the other episodes of vomiting/diarrhea this year, he has not presented for care and has no PCP. States he has Marfan syndrome takes no medications and takes no [id number] medications or ibuprofen/aspirin/NSAID. He has been malaise, feeling chills but also states that when he is sweating it is because his air conditioner does not work in his apartment and it has been very hot this summer. He denies any respiratory symptoms. Has basically stayed at home recently and no recent local or long travel. No recent antibiotics. No recent hospitalizations or surgeries. Denies any recent possibility of food poisoning or uncooked/undercooked meats. No melena. Abdominal pain is mild, it is mostly nausea. - Past Medical History (1) Marfan syndrome Status: Chronic (2) Anxiety Status: Chronic (3) Depression Status: Chronic Past Medical History - Allergies and Home Meds Allergies/Adverse Reactions: Allergies onion Allergy (Verified 02/07/20 15:38) Hives PAPER TAPE Allergy (Uncoded 02/07/20 15:38) Rash SPIDERS Allergy (Uncoded 02/07/20 15:38) varies depending on species Primary Care Physician: Bhupinder Kramer MD [STAFF PHYSICIAN] - (call for appt) Surgical History: appendectomy Lives: Alone Smoking Status: Never smoker - Family History Maternal Family History: Reports: Heart Disease Paternal Family History: Reports: No pertinent history Review of Systems General: Reports: Chills, Malaise, Sweats. Denies: Fever Eyes: Denies: Visual changes - bilaterally, Diplopia ENT: Denies: Rhinorrhea, Sore throat Cardiovascular: Denies: Chest pain, Palpitations Respiratory: Denies: Dyspnea, Cough, Dyspnea on exertion Gastrointestinal: Reports: Abdominal pain, Nausea, Vomiting, Diarrhea. Denies: Melena, Hematochezia Genitourinary: Denies: Dysuria, Hematuria, Frequency Musculoskeletal: Denies: Neck pain, Back pain, Extremity Pain Skin: Denies: Rash, Wounds Neurological: Denies: Headache, Weakness, Numbness Physical Exam Vital Signs/Narrative: Vital Signs Temp Pulse Resp BP Pulse Ox 02/07/20 15:39 98.5 F 150 H 16 147/98 H 93 Inital Vital Signs reviewed: Yes General: Well nourished, Well developed, No Acute Distress Head: Normocephalic, Atraumatic Eyes: Perrl, EOMI ENT: Moist mucous membranes, No rhinorrhea Neck: Supple, Nontender Cardiovascular: Regular rate, Regular rhythm, No murmurs, Tachycardia Respiratory: No distress, CTA bilaterally, Chest nontender Abdomen: Soft, Nondistended, Normal bowel sounds, No masses, Tender - Epig astrium and left upper quadrant. Negative for: Guarding, Rebound tenderness, Garces's sign Back: Nontender, Normal Inspection. Negative for: CVA tenderness Extremities: Nontender, No edema, - - Marfanoid extremities.. Negative for: Calf Tenderness Skin: Normal color, No rash, No Trauma Neurological: Alert, Oriented x3, Cranial nerves II-XII grossly intact, Normal Strength, Normal Sensation, Normal Gait Psychological: Normal affect, Normal Mood Diagnostic/Tx/Re-eval Impressions STUDY: ABDOMINAL ULTRASOUND - RIGHT UPPER QUADRANT REASON FOR VISIT: Male, 34 years old N/V X3 DAYS TECHNIQUE: Ultrasound evaluation of the right upper quadrant was performed with real-time and static rosado-scale imaging. TECHNICAL QUALITY: Adequate. COMPARISON: None. FINDINGS: Liver: The liver measures 17.8 cm. There is increased echogenicity consistent with fatty infiltration. The bile ducts are within normal limits. There is hepatic color flow. The direction of portal flow is hepatopetal. There is no demonstrated mass lesion. Gallbladder: Normal distended gallbladder. The gallbladder wall measures two mm. There is a negative sonographic Garces''s sign. There is no pericholecystic fluid. There are no gallstones. Common Bile Duct (C.B.D.): The common bile duct measures three mm. Pancreas: There is nonvisualization of the pancreas. t. Right Kidney: Normal size of the right kidney. The right kidney measures 10.1 cm. Normal renal cortex. The right cortex measures 1.1 cm. There is no demonstrated renal mass or cyst. There is no right hydronephrosis. US/Gallbladder IMPRESSION: Fatty infiltration of the liver. Electronically Signed: Yosi Carreno MD at 18:17 EDT Laboratory Results 02/07/20 02/07/20 16:05 16:05 WBC 12.2 H RBC 5.88 Hgb 17.1 H Hct 52.0 MCV 88.4 MCH 29.1 MCHC 32.9 RDW Std Deviation 41.7 RDW Coeff of Daniel 12.9 Plt Count 291 MPV 11.0 Immature Gran % (Auto) 0.300 Neut % (Auto) 75.5 H Lymph % (Auto) 16.2 L Concho % (Auto) 6.7 Eos % (Auto) 1.1 Baso % (Auto) 0.2 Absolute Neuts (auto) 9.2 H Absolute Lymphs (auto) 1.98 Nucleated RBC % 0 Sodium 136 Potassium 4.6 Chloride 111 H Carbon Dioxide 19.0 L Anion Gap 6 BUN 21 H Creatinine 1.12 Estim Creat Clear Calc 114.91 Est GFR (MDRD) Af Amer 95 Est GFR (MDRD) Non-Af 79 BUN/Creatinine Ratio 18.8 Glucose 130 H Calcium 9.6 Total Bilirubin 3.40 H AST 22 ALT 53 Alkaline Phosphatase 76 Total Protein 9.6 H Albumin 4.5 Globulin 5.1 H Albumin/Globulin Ratio 0.9 Lipase 81 - Medical Decision Making Patient appears to be mildly dehydrated, he was given IV fluids, Zofran, GI cocktail, he was still having diarrhea which was watery, and according to the lab to which we sent a sample collected from the patient, we were not able to run any tests on it because it was pure water and there was no stool within it. He had no melena or bright red blood per rectum. His hemoglobin is stable and his vital signs are stable as well. With IV fluids pulse came down to the 80s and his blood pressures in the 140s. He was well-appearing ambulatory to and from the bathroom. He still felt poorly/malaised and was no having discomfort so I gave him Reglan which helped. He had no vomiting in the emergency d epartment. Since his total bilirubin is elevated, although it has been in the past as well it was higher today, I obtained a ultrasound of his right upper quadrant. The results are as above, his common bile duct is 3 mm, consistent with the absence of obstruction. It is possible he has Gilbert's disease and is chronically elevated. There is no sign of gallbladder pathology at this time. He is tolerating oral fluids. At this time I feel he is stable to be discharged home with a PPI and antiemetic, he needs a PCP to follow-up with to whom he is referred, and I advised doing so as if this persists he may need follow-up with gastroenterology. Certainly viral gastroenteritis is in the differential, as is other functional GI pathology, given multiple episodes throughout the year. I am less concerned that this could be COVID-19, although the patient presents during the national coronavirus emergency declaration, because he has had multiple episodes of this throughout the year. My suspicion with regards to the small streaks of blood he vomited today is that he has a small Darcie-Hudson tear. Also unable to rule out the possibility of gastritis, peptic ulcer disease, etc. but since he has no decrease in his hemoglobin, significantly elevated BUN, or melena, I do not think he needs to be admitted for further emergent evaluation. ED Disposition - Plan for ED Patient: Disposition: Home or Assisted Living Diagnosis: Nausea vomiting and diarrhea, Upper abdominal pain, Hematemesis Instructions: ED Vomiting and Diarrhea Nonspecific Adult, Darcie-Hudson Tear Prescriptions: Omeprazole 1 cap PO DAILY 30 Days #30 capsule. Prescription Printed proMETHazine tablet [Phenergan] 25 mg PO Q6H PRN PRN #20 tab PRN Reason: Nausea Prescription Printed Referrals: Bhupinder Kramer MD [STAFF PHYSICIAN] - (call for appt)
[2020-02-07] MEDS: Mag Hydrox/Al Hydrox/Simeth 30 ML UDC PO (16:15)
[2020-02-07] MEDS: 0.9% Normal Saline 1,000 ML 1000 ML IV (16:15)
[2020-02-07] MEDS: Ondansetron 4 MG/2 ML Vial IV (16:15)
[2020-02-07] MEDS: Dicyclomine 10 MG Capsule 20 MG PO (16:15)
[2020-02-07 16:25] LABS: Absolute Lymphocyte Count 1.98 X10^3/uL (0.83-4.51); Absolute Neutrophil Count 9.2 X10^3/uL (2.0-7.7); Basophil# 0.03 X10^3/uL; Basophil% 0.2 % (0-1); Eosinophil# 0.13 X10^3/uL; Eosinophils% 1.1 % (0-5); Hemoglobin 17.1 g/dL (13.0-16.5); Lymphocyte # 1.98 X10^3/ul (4.0); Lymphocyte % 16.2 % (19-41); Mean Corp Hgb Conc 32.9 g/dL (32-36); Mean Corpuscular Hgb 29.1 pg (27.0-32.0); Mean Corpuscular Volume 88.4 fL (80-94); Monocyte# 0.82 X10^3/uL; Monocyte% 6.7 % (0-10); NRBC Flagged by Analyzer 0 % (0-5); Neutrophil # 9.21 X10^3/uL (2.7-7.7); Neutrophil % 75.5 % (47-70); Platelet Count 291 K/mm3 (150-450); RBC Distribution Width CV 12.9 % (11.6-14.6); RBC Distribution Width SD 41.7 fl (35.1-43.9); Red Blood Count 5.88 M/mm3 (4.6-6.2); White Blood Count 12.2 K/mm3 (4.4-11.0)
--- NOTE | 2020-02-07 16:43 | ED.RN ---
PT UP TO RESTROOM TO PROVIDE STOOL SAMPLE. STOOL IS COMPLETELY WATERY AND HAS NOTHING OF SUBSTANCE TO BE ABLE TO SEND TO LAB. DR. PACE NOTIFIED AT THIS TIME.
[2020-02-07 16:50] LABS: ALB/GLOB Ratio 0.9 RATIO (0.9-2.4); AST(SGOT) 22 U/L (15-37); Alanine Aminotransfer ALT/SGPT 53 U/L (16-61); Albumin, Serum 4.5 g/dL (3.2-5.0); Alkaline Phosphatase 76 U/L (45-117); Anion Gap 6 (5-15); BUN 21 mg/dL (7-18); BUN/Creat Ratio 18.8 RATIO (10-20); Calcium,Total 9.6 mg/dL (8.5-10.1); Chloride 111 mmol/L (98-107); Creatinine, Serum 1.12 mg/dL (0.70-1.30); EST Glomerular Filtration Rate 79 mL/min (>60); Est Glom Filt Rate - Afr Amer 95 mL/min (>60); Estimated Creatinine Clearance 114.91 ml/min; Globulin 5.1 g/dL (2.2-4.2); Glucose 130 mg/dL (74-106); Lipase 81 U/L (73-393); Potassium 4.6 mmol/L (3.5-5.1); Protein, Total 9.6 g/dL (6.4-8.2); Sodium Level 136 mmol/L (136-145)
--- NOTE | 2020-02-07 17:05 | US_ITS ---
STUDY: ABDOMINAL ULTRASOUND - RIGHT UPPER QUADRANT REASON FOR VISIT: Male, 34 years old N/V X3 DAYS TECHNIQUE: Ultrasound evaluation of the right upper quadrant was performed with real-time and static rosado-scale imaging. TECHNICAL QUALITY: Adequate. COMPARISON: None. FINDINGS: Liver: The liver measures 17.8 cm. There is increased echogenicity consistent with fatty infiltration. The bile ducts are within normal limits. There is hepatic color flow. The direction of portal flow is hepatopetal. There is no demonstrated mass lesion. Gallbladder: Normal distended gallbladder. The gallbladder wall measures two mm. There is a negative sonographic Garces''s sign. There is no pericholecystic fluid. There are no gallstones. Common Bile Duct (C.B.D.): The common bile duct measures three mm. Pancreas: There is nonvisualization of the pancreas. t. Right Kidney: Normal size of the right kidney. The right kidney measures 10.1 cm. Normal renal cortex. The right cortex measures 1.1 cm. There is no demonstrated renal mass or cyst. There is no right hydronephrosis. US/Gallbladder IMPRESSION: Fatty infiltration of the liver. Electronically Signed: Yosi Carreno MD at 18:17 EDT Tel , Service support ,
[2020-02-07] MEDS: Metoclopramide 10 MG/2 ML Vial 5 MG IV (17:27)
[2020-02-07] MEDS: Pantoprazole Sodium 40 MG Tablet PO (17:27)
[2020-02-07 18:08] VITALS: BP 141/97; PULSE 16; RESP 85; O2SAT 94
[2020-02-07 19:40] VITALS: BP 140/98; PULSE 100; RESP 16; O2SAT 95
== END 2020-02-07 19:41 | disposition home or self-care (01) ==
PROVIDERS: Emergency Provider Emergency Medicine
DX: K92.0 Hematemesis (principal); R10.10 Upper abdominal pain, unspecified; R19.7 Diarrhea, unspecified
CPT/HCPCS: 76705; 80053; 83690; 85025; 96361; 96374; 96375; 99285; J7030; A4216; J2405

== ENCOUNTER 2022-05-26 19:20 | Emergency (ER) | payer MEDICAID, SELFPAY ==
[2022-05-26 19:21] VITALS: BP 167/90; PULSE 100; RESP 18; TEMP 36.7; O2SAT 96; BMI 28.0
[2022-05-26] MEDS: Ondansetron 4 MG/2 ML Vial 2 MG PO.IVFORM (20:01)
[2022-05-26] MEDS: Ketorolac 15 MG/ML Vial IV (20:01)
[2022-05-26 20:08] LABS: Absolute Lymphocyte Count 2.22 X10^3/uL (0.83-4.51); Basophil# 0.05 X10^3/uL; Basophil% 0.5 % (0-1); Eosinophil# 0.09 X10^3/uL; Eosinophils% 0.9 % (0-5); Hematocrit 45.6 % (40-54); Hemoglobin 14.9 g/dL (13.0-16.5); Lymphocyte # 2.22 X10^3/ul (0.83-4.51); Lymphocyte % 21.9 % (19-41); Mean Corp Hgb Conc 32.7 g/dL (32-36); Mean Corpuscular Hgb 28.8 pg (27.0-32.0); Mean Platelet Vol. 10.6 fl (6.2-12.0); Monocyte# 0.73 X10^3/uL; Monocyte% 7.2 % (0-10); NRBC Flagged by Analyzer 0 % (0-5); Neutrophil # 7.01 X10^3/uL (2.7-7.7); Platelet Count 210 K/mm3 (150-450); RBC Distribution Width CV 13.1 % (11.6-14.6); RBC Distribution Width SD 42.1 fl (35.1-43.9); Red Blood Count 5.18 M/mm3 (4.6-6.2); White Blood Count 10.2 K/mm3 (4.4-11.0)
--- NOTE | 2022-05-26 20:18 | CT_ITS ---
STUDY: CT Abdomen And Pelvis W/O Contrast Injection 05/26/2022 8:53 PM REASON FOR EXAM: Male, 36 years old. ABDOMINAL PAIN flank pain TECHNIQUE: Transaxial images were obtained without oral contrast, and without intravenous contrast. Individualized dose optimization techniques were used for this CT. COMPARISON: 02.19.18 FINDINGS: The visualized lung bases are unremarkable. The visualized portions of the heart are within normal limits. Unremarkable liver. Unremarkable gallbladder and extrahepatic biliary system. Unremarkable spleen. Unremarkable pancreas. Unremarkable bilateral adrenal glands. No acute findings of the right kidney. Non obstructive 5mm left renal parenchymal stones. Unremarkable visualized stomach. Unremarkable small intestine. Large amount of stool in the rectal vault can suggest constipation. The appendix is visualized and appears unremarkable. There are no acute findings of the abdominal aorta. Unremarkable inferior vena cava. Subcentimeter mesenteric lymph nodes. Unremarkable urinary bladder. There is an umbilical hernia containing fat. Unremarkable osseous structures. 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 CT/Abdomen/Pelvis without Cont IMPRESSION: (NOT LISTED IN ORDER OF SIGNIFICANCE) Constipation. Non obstructive 5mm left renal parenchymal stones. Other findings as above. Electronically Signed: Jax Sanchez MD at 20:55 EST ,
[2022-05-26 20:26] LABS: Mucous, Urine 0 SEEN /hpf (<or=2+)
[2022-05-26 20:27] LABS: Color, Urine Yellow (Yellow); Glucose, Dipstick Normal (Normal); Ketone-Dipstick 5 mg/dl (Negative); Leukocyte Esterase-Dipstick 25 /ul (Negative); Nitrite-Dipstick Negative (Negative); Occult Blood-Urine 50 /ul (Negative); Protein-Dipstick 15 mg/dl (Negative); Urine Bilirubin Dipstick Negative (Negative); Urine Clarity Sl. Cloudy (Clear); Urine Urobilinogen 1 mg/dl (Normal)
[2022-05-26 20:28] LABS: Anion Gap 7 (5-15); BUN 11 mg/dL (7-18); BUN/Creat Ratio 13.7 RATIO (10-20); Calcium,Total 9.5 mg/dL (8.5-10.1); Chloride 103 mmol/L (98-107); EST Glomerular Filtration Rate 114 mL/min (>60); Est Glom Filt Rate - Afr Amer 138 mL/min (>60); Estimated Creatinine Clearance 157.78 ml/min; Glucose 101 mg/dL (74-106); Sodium Level 138 mmol/L (136-145)
--- NOTE | 2022-05-26 20:28 | EX.ED.GUMALE ---
HPI <ALISE Marlow - Last Filed: 05/26/22 21:48> History of Present Illness Chief Complaint: Flank Pain Narrative Narrative: Patient presents with throbbing right flank pain that he has had for the past month intermittently. He states it has acutely worsened to the point where he is very uncomfortable. He does have a history of kidney stones and feels that this is the same pain. He denies dysuria and hematuria but admits to urinary frequency. He denies fever, abdominal pain, vomiting, or diarrhea. PFSH <ALISE Marlow - Last Filed: 05/26/22 21:48> PFSH Medical History Kidney stone Home Medications ibuprofen 800 mg tablet 800 mg PO Q8H PRN pain #20 tabs 05/26/22 [Rx Last Taken Unknown] lumateperone 42 mg capsule 42 mg PO DAILY 05/26/22 [History Last Taken Unknown] ondansetron 4 mg disintegrating tablet 4 mg PO Q8H PRN nausea and vomiting #10 tabs 05/26/22 [Rx Last Taken Unknown] trazodone 50 mg tablet 50 mg PO QHS 05/26/22 [History Last Taken Unknown] Allergy/AdvReac Type Severity Reaction Status Date / Time adhesive tape [paper tape] Allergy Rash Verified 05/26/22 19:22 onion Allergy Hives Verified 05/26/22 19:22 spider venom Allergy Other Verified 05/26/22 19:22 Surgical History History of appendectomy Social History Smoking Status: Never smoker ROS <ALISE Marlow - Last Filed: 05/26/22 21:48> ROS ED Constitutional Constitutional ED: Denies chills, fever(s) or sweats Eyes Eyes: Denies change in vision ENT ENT ED: Denies ear pain, rhinorrhea or sore throat Cardiovascular Cardiovascular: Denies chest pain or racing heartbeat Respiratory/Chest Respiratory/Chest: Denies cough or dyspnea Gastrointestinal Gastrointestinal: Reports nausea; Denies abdominal pain, constipation, diarrhea or vomiting Genitourinary Genitourinary ED: Reports urinary frequency; Denies dysuria or hematuria Musculoskeletal Musculoskeletal: Denies myalgias or neck pain Integumentary Denies abscess or rash Neurologic Neurologic: Denies headache(s) or weakness Psychiatric Psychiatric: Reports anxiety; Denies suicidal ideation EXAM <ALISE Marlow - Last Filed: 05/26/22 21:48> Physical Exam Const Vital Signs: 05/26/22 19:21 05/26/22 21:35 Temperature 98.1 F Temperature Source Temporal Pulse Rate 100 82 Respiratory Rate 18 15 Blood Pressure 167/90 H 142/85 H Blood Pressure Mean 115 Pulse Ox 96 98 Oxygen Delivery Method Room Air Positive well nourished and unkempt General Appearance ED: unkempt HEENT Reports moist mucous membranes normocephalic and atraumatic Eyes PERRL and EOMs intact bilaterally Neck supple Resp normal respiratory effort and clear to auscultation bilaterally Auscultation: Negative for rales, rhonchi, wheezes or diminished lung sounds Cardio regular rate, regular rhythm and no murmurs GI non-tender, non-distended and no masses Auscultation: normoactive bowel sounds Palpation: soft; Negative for guarding Narrative: R CVA tenderness without erythema, ecchymosis, or edema. Extremity normal to inspection General Extremety ED: Negative for edema General Extremity: Negative for edema Neuro oriented x3, moves all extremities, no focal motor deficits and no sensory deficits noted Sensorium / Orientation: alert Motor Exam: strength 5/5 throughout Psych mental status grossly normal Appearance: unkempt Thought Process: normal thought process Thought Content: normal thought content Skin General Skin Exam: Negative for jaundice Lesions: no lesions Rashes: no rashes Trauma: Negative for abrasion <Dr. Taqueria Boyd DO - Last Filed: 05/26/22 21:54> Physical Exam Const Vital Signs: 05/26/22 19:21 05/26/22 21:35 Temperature 98.1 F Temperature Source Temporal Pulse Rate 100 82 Respiratory Rate 18 15 Blood Pressure 167/90 H 142/85 H Blood Pressure Mean 115 Pulse Ox 96 98 Oxygen Delivery Method Room Air MDM <ALISE Marlow - Last Filed: 05/26/22 21:48> MDM MDM Narrative Medical decision making narrative: Patient has been given Toradol and Zofran here in the ED. He is still complaining of some right flank pain. However he is well-hydrated and nontoxic-appearing and is able to discharge home with pain control. His CBC and BMP are unremarkable. His vital signs are stable. I have reassured him that he does not have a obstructive stone or infection. He states he does not have a PCP so I have referred him to one. Lab Data Attestation: I reviewed the patient's lab results. Labs: Laboratory Results - last 24 hr 05/26/22 05/26/22 05/26/22 20:00 20:00 20:20 WBC 10.2 RBC 5.18 Hgb 14.9 Hct 45.6 MCV 88.0 MCH 28.8 MCHC 32.7 RDW Std Deviation 42.1 RDW Coeff of Daniel 13.1 Plt Count 210 MPV 10.6 Immature Gran % (Auto) 0.500 Neut % (Auto) 69.0 Lymph % (Auto) 21.9 [place]oure % (Auto) 7.2 Eos % (Auto) 0.9 Baso % (Auto) 0.5 Absolute Neuts (auto) 7.0 Absolute Lymphs (auto) 2.22 Nucleated RBC % 0 Sodium 138 Potassium 4.0 Chloride 103 Carbon Dioxide 28.0 Anion Gap 7 BUN 11 Creatinine 0.80 Estim Creat Clear Calc 157.78 Est GFR (MDRD) Af Amer 138 Est GFR (MDRD) Non-Af 114 BUN/Creatinine Ratio 13.7 Glucose 101 Calcium 9.5 Urine Color Yellow Urine Clarity Sl. Cloudy Urine pH 6.0 Ur Specific Bivalve 1.020 Urine Protein 15 H Urine Glucose (UA) Normal Urine Ketones 5 H Urine Occult Blood 50 H Urine Nitrite Negative Urine Bilirubin Negative Urine Urobilinogen 1 H Ur Leukocyte Esterase 25 H Urine RBC 0-5 SEEN Urine WBC 0-5 SEEN Ur Squamous Epith Cells 0-5 SEEN Urine Bacteria 1+ Urine Mucus 0 SEEN Urine culture has been sent. CBC and BMP unremarkable. Radiography Diagnostic Testing: Clinical Impression(s) from Imaging Studies Abdomen/Pelvis CT 05/26/22 20:18 IMPRESSION: (NOT LISTED IN ORDER OF SIGNIFICANCE) Constipation. Non obstructive 5mm left renal parenchymal stones. Other findings as above. Electronically Signed: Jax Sanchez MD at 20:55 EST , I have interpreted CT findings and I agree with radiologist impressions. This has also been reviewed by attending ED physician. <Dr. Taqueria Boyd, DO - Last Filed: 05/26/22 21:54> [facility] Narrative Medical decision making narrative: Patient has been given Toradol and Zofran here in the ED. He is still complaining of some right flank pain. However he is well-hydrated and nontoxic-appearing and is able to discharge home with pain control. His CBC and BMP are unremarkable. His vital signs are stable. I have reassured him that he does not have a obstructive stone or infection. He states he does not have a PCP so I have referred him to one. Attending note: Patient seen and evaluated with kosher sealer. I perform my own [id number] evaluation. I agree with the plan of work-up. Waxing waning right flank pain for the past month. History of kidney stones last time 5 years ago he states intervention 1 time when he was 18 years old. No urinary symptoms. No fevers. Nausea without vomiting. Exam tender right flank no rash. Soft abdomen. Renal stone protocol had leukocytes of 25 1+ bacteria urine culture sent. We will hold without treatment. Labs are stable. CT scan no obstructive uropathy. He had a 5 mm left renal nephrolithiasis. Is discharged with NSAIDs antiemetics with monitoring for rash. Follow-up given as an outpatient. Lab Data Labs: Laboratory Results - last 24 hr 05/26/22 05/26/22 05/26/22 20:00 20:00 20:20 WBC 10.2 RBC 5.18 Hgb 14.9 Hct 45.6 MCV 88.0 MCH 28.8 MCHC 32.7 RDW Std Deviation 42.1 RDW Coeff of Daniel 13.1 Plt Count 210 MPV 10.6 Immature Gran % (Auto) 0.500 Neut % (Auto) 69.0 Lymph % (Auto) 21.9 Lamoure % (Auto) 7.2 Eos % (Auto) 0.9 Baso % (Auto) 0.5 Absolute Neuts (auto) 7.0 Absolute Lymphs (auto) 2.22 Nucleated RBC % 0 Sodium 138 Potassium 4.0 Chloride 103 Carbon Dioxide 28.0 Anion Gap 7 BUN 11 Creatinine 0.80 Estim Creat Clear Calc 157.78 Est GFR (MDRD) Af Amer 138 Est GFR (MDRD) Non-Af 114 BUN/Creatinine Ratio 13.7 Glucose 101 Calcium 9.5 Urine Color Yellow Urine Clarity Sl. Cloudy Urine pH 6.0 Ur Specific Bivalve 1.020 Urine Protein 15 H Urine Glucose (UA) Normal Urine Ketones 5 H Urine Occult Blood 50 H Urine Nitrite Negative Urine Bilirubin Negative Urine Urobilinogen 1 H Ur Leukocyte Esterase 25 H Urine RBC 0-5 SEEN Urine WBC 0-5 SEEN Ur Squamous Epith Cells 0-5 SEEN Urine Bacteria 1+ Urine Mucus 0 SEEN Radiography Diagnostic Testing: Clinical Impression(s) from Imaging Studies Abdomen/Pelvis CT 05/26/22 20:18 IMPRESSION: (NOT LISTED IN ORDER OF SIGNIFICANCE) Constipation. Non obstructive 5mm left renal parenchymal stones. Other findings as above. Electronically Signed: Jax Sanchez MD at 20:55 EST Reading Location ID and State: [facility] [place][note 3] / MD , Service support , Discharge Plan Triage Chief Complaint: Flank Pain ED Midlevel Provider: Alexia Pierce ED Provider: Taqueria Boyd Dx/Rx/DC Orders Clinical Impression: Right flank pain Instructions: ED Flank Pain, Uncertain Cause Prescriptions: New ibuprofen 800 mg tablet 800 mg PO Q8H PRN (Reason: pain) Qty: 20 0RF ondansetron 4 mg tablet,disintegrating 4 mg PO Q8H PRN (Reason: nausea and vomiting) Qty: 10 0RF No Action trazodone 50 mg tablet 50 mg PO QHS lumateperone 42 mg Capsule 42 mg PO DAILY Primary Care Provider: Care Physician,No Primary Referrals: Helene Raines MD [Med Staff - Laboratory Apparatus [facility]lower] - 3-5 Days Care Physician,No Primary [Primary Care Provider] - 3-5 Days Activity Restrictions/Additional Instructions: Please follow up with the provider we have referred you to. Please seek medical attention for any new or worsening of symptoms. Disposition Disposition: Home, Self Care Discharge Date/Time: 05/26/22 21:39
[2022-05-26 20:35] LABS: Bacteria 1+ /hpf (None Seen); Red Blood Cells-Urine 0-5 SEEN /hpf (0-5); Squamous Epithelial Cells - UA 0-5 SEEN /hpf (0-5); White Blood Cells 0-5 SEEN /hpf (0-5)
[2022-05-26 21:35] VITALS: BP 142/85; PULSE 82; RESP 15; O2SAT 98
== END 2022-05-26 21:39 | disposition home or self-care (01) ==
PROVIDERS: Physician Assistant; Emergency Provider Emergency Medicine; Visit Provider Emergency Medicine
DX: R10.9 Unspecified abdominal pain (principal); N20.0 Calculus of kidney; R11.0 Nausea; R35.0 Frequency of micturition
CPT/HCPCS: 74176; 80048; 81001; 85025; 87086; 87088; 96374; 99282; A4216; J2405

== ENCOUNTER 2023-06-09 23:45 | Emergency (ER) | payer MEDICAID, SELFPAY ==
[2023-06-09 23:46] VITALS: BP 132/56; PULSE 51; RESP 18; TEMP 36.2; O2SAT 100
[2023-06-09 23:52] VITALS: BMI 31.2
[2023-06-10] VITALS (11 sets, daily range): BP systolic 116–164; BP diastolic 53–61; PULSE 53–89; RESP 12–21; O2SAT 98–100
--- NOTE | 2023-06-10 00:30 | ED.RN ---
REPORT GIVEN TO AJAY VICK. NAVA TO ASSUME CARE.
--- NOTE | 2023-06-10 00:32 | CT_ITS ---
INDICATION: chest pain with PMHX of aortic root dilation EXAMINATION: CTA Chest and CTA Abdomen and Pelvis W/ Contrast Injection (and W/O Contrast Images if performed) TECHNIQUE: A CTA of the chest, abdomen, and pelvis is obtained with sagittal and coronal reconstructed MIP views. Three-dimensional surface rendered sequence of the thoracic and abdominal aorta was obtained. A radiation dose optimization technique was used for this scan. V Contrast: IV 100mL [id number]-370 Oral contrast: None. RADIATION DOSAGE (If Supplied By Facility): CTDIvol = ( 28.25 ) mGy, DLP = ( 1847.37 ) mGycm COMPARISON: CT abdomen and pelvis 05/26/2022 noncontrast. FINDINGS: ---CHEST: LUNGS: No consolidation. PLEURA: No pleural effusion. No pneumothorax. PULMONARY VESSELS: Not well opacified. No pulmonary emboli identified in the central pulmonary arteries. MEDIASTINUM: Unremarkable. No mediastinal hematoma. HEART: Mildly enlarged. Minimal pericardial effusion AORTA/GREAT VESSELS: Aortic dissection with dissection flap identified, begins at the proximal ascending aorta aortic root and extends through the arch to the abdomen. Maximal transverse diameter of the proximal ascending aorta 4.5 cm. 3.6 cm at the arch, 2.8 cm mid descending. The true and false lumens are nearly equally opacified. Dissection flap extends into the proximal left common carotid and left subclavian arteries, and likely into the at least short segment of the brachiocephalic artery. Left vertebral direct origin from the arch arises from the true lumen. UPPER ABDOMEN: No acute findings. BONES/SOFT TISSUES: No acute findings. OTHER: None. --- ABDOMEN AND PELVIS AORTA: Dissection extends from the chest through the iliac bifurcation. Aorta normal caliber. CELIAC ARTERY: Patent. Dissection extends to at least the very proximal segment. Patent distally. No significant stenosis. SMA: Patent. Arises from the true lumen. RENAL ARTERIES: Patent. Right: Dissection to the very proximal segment. Left: Dissection extends to nearly the renal hilum. Patent distally bilaterally. MELODY: Patent. Arises from the true lumen. ILIAC ARTERIES: Dissection extends into the common iliac arteries bilaterally, continues to the right external iliac artery, probable right internal iliac artery, and left external and internal iliac arteries. RETROPERITONEUM: Unremarkable. No hematoma or periaortic stranding. LIVER: Unremarkable. GALLBLADDER/BILE DUCTS: Unremarkable. PANCREAS: Unremarkable. SPLEEN: Unremarkable. ADRENAL GLANDS: Unremarkable. KIDNEYS/URETERS: Unremarkable. BOWEL/MESENTERY: No bowel obstruction. Stool distended rectum. APPENDIX: Identified and normal. PERITONEUM: No free air. No free fluid. REPRODUCTIVE ORGANS: Unremarkable. BLADDER: Unremarkable. BONES/SOFT TISSUES: No acute abnormality. OTHER: None. CT/CTA Chst, Abd, Pel W and/or WO IMPRESSION: Aortic dissection Alexis type A begins at the aortic root, with extension into the great vessels into the neck, including the brachiocephalic, left common carotid and left subclavian arteries as detailed above. Ascending aortic aneurysm 4.5 cm. Abdominal aortic dissection extends to the iliac bifurcation with branch vessel involvement celiac, and renal arteries as detailed above. Nonstandard communication protocol initiated for the critical finding immediately at 1:45 AM eastern time, prior to dictation. I discussed the findings with Dr. Peterson Milton by telephone at 1:50 AM eastern time prior to completion of dictation. N.B. : The above Results were Read Back by Letty Langley MD to Peterson Milton DO, and understanding confirmed on 06/10/2023 01:50:29 (ET). Electronically Signed: Letty Langley MD at 2:04 EST ,
[2023-06-10] MEDS: Ondansetron 4 MG/2 ML Vial IV (00:42)
[2023-06-10] MEDS: Morphine 4 MG/ML Syringe IV (00:42)
[2023-06-10] MEDS: 0.9% Normal Saline (1000mL) 1,000 ML 999 ML IV (00:42)
[2023-06-10 00:46] LABS: Absolute Neutrophil Count 11.2 X10^3/uL (2.0-7.7); Basophil# 0.05 X10^3/uL; Basophil% 0.3 % (0-1); Eosinophil# 0.01 X10^3/uL; Eosinophils% 0.1 % (0-5); Hematocrit 41.2 % (40-54); Hemoglobin 13.6 g/dL (13.0-16.5); Lymphocyte % 14.9 % (19-41); Mean Corpuscular Hgb 28.6 pg (27.0-32.0); Mean Corpuscular Volume 86.6 fL (80-94); Mean Platelet Vol. 10.5 fl (6.2-12.0); Monocyte# 1.28 X10^3/uL; Monocyte% 8.6 % (0-10); NRBC Flagged by Analyzer 0 % (0-5); Neutrophil % 75.7 % (47-70); Platelet Count 232 K/mm3 (150-450); RBC Distribution Width CV 12.8 % (11.6-14.6); Red Blood Count 4.76 M/mm3 (4.6-6.2); White Blood Count 14.8 K/mm3 (4.4-11.0)
[2023-06-10 00:56] LABS: International Normalized Ratio 1.1; Prothrombin Time (Protime)PT. 14.4 SECONDS (11.7-14.9)
[2023-06-10 00:57] LABS: Partial Thromboplast Time 32.9 Seconds (24.1-36.2)
[2023-06-10 01:05] LABS: Anion Gap 4 (5-15); BUN 13 mg/dL (7-18); BUN/Creat Ratio 11.4 RATIO (10-20); Calcium,Total 9.2 mg/dL (8.5-10.1); Chloride 109 mmol/L (98-107); Creatinine, Serum 1.14 mg/dL (0.70-1.30); EST Glomerular Filtration Rate 76 mL/min (>60); Est Glom Filt Rate - Afr Amer 92 mL/min (>60); Glucose 118 mg/dL (74-106); Magnesium 2.1 mg/dL (1.6-2.6); Potassium 3.9 mmol/L (3.5-5.1); Sodium Level 139 mmol/L (136-145); Troponin-I HS 6 pg/mL (3.0-78.0)
--- NOTE | 2023-06-10 01:27 | EDS_ITS ---
HPI History of Present Illness Chief Complaint: Chest Pain Informant: patient and family Narrative Narrative: Patient is a 37-year-old male with past medical history of Marfan syndrome and bipolar disorder. He states he was at home roughly 1 hour prior to arrival when he developed sudden onset midsternal to left-sided chest pain that he feels radiates towards his neck into his arm and down towards his abdomen. He states that there was nausea associated with this but no vomiting. He denies any diaphoresis but does endorse shortness of breath. He states that he does see a collision center manager and is on metoprolol succinate once daily but denies any history of heart disease. He also denies any history of DVT/PE or any recent surgery or travel [facility] Medical History Kidney stone Home Medications ibuprofen 800 mg tablet 800 mg PO Q8H PRN pain #20 tabs 05/26/22 [Rx Last Taken Unknown] lumateperone 42 mg capsule 42 mg PO DAILY 05/26/22 [History Last Taken Unknown] trazodone 50 mg tablet 50 mg PO QHS 05/26/22 [History Last Taken Unknown] cholecalciferol (vitamin D3) 25 mcg (1,000 unit) tablet (Vitamin D3) 25 mcg PO DAILY 06/10/23 [History Last Taken Unknown] metoprolol succinate 25 mg tablet,extended release 24 hr 25 mg PO DAILY 06/10/23 [History Last Taken Unknown] Allergy/AdvReac Type Severity Reaction Status Date / Time adhesive tape [paper tape] Allergy Rash Verified 05/26/22 19:22 onion Allergy Hives Verified 05/26/22 19:22 spider venom Allergy Other Verified 05/26/22 19:22 Surgical History History of appendectomy Social History Smoking Status: Never smoker ROS ROS ED Constitutional Constitutional ED: Denies chills or fever(s) Eyes Eyes: Denies change in vision ENT ENT ED: Denies sore throat Cardiovascular Cardiovascular: Reports chest pain; Denies palpitations or racing heartbeat Respiratory/Chest Respiratory/Chest: Reports dyspnea; Denies cough Gastrointestinal Gastrointestinal: Reports abdominal pain and nausea; Denies diarrhea or vomiting Genitourinary Genitourinary ED: Denies dysuria Musculoskeletal Musculoskeletal: Reports back pain Integumentary Denies rash Neurologic Neurologic: Denies headache(s) or paresthesias Hematologic/Lymphatic Hematologic/Lymphatic: Denies easy bleeding or easy bruising EXAM Physical Exam Const Vital Signs: 06/09/23 23:46 06/09/23 23:52 06/10/23 00:46 Temperature 97.1 F L Temperature Source Temporal Pulse Rate 51 L 53 L Respiratory Rate 18 17 Respiratory Effort Normal Non-Labored Blood Pressure 132/56 H 139/53 H Blood Pressure Mean 81 81 Blood Pressure Source Blood Pressure Location Pulse Ox 100 100 Oxygen Delivery Method Room Air Room Air 06/10/23 01:23 06/10/23 01:40 06/10/23 01:45 Temperature Temperature Source Pulse Rate 72 78 78 Respiratory Rate 12 12 16 Respiratory Effort Blood Pressure 164/54 H 122/55 H 116/56 L Blood Pressure Mean 90 77 76 Blood Pressure Source Blood Pressure Location Pulse Ox 99 100 100 Oxygen Delivery Method Room Air Room Air Room Air 06/10/23 02:01 Temperature Temperature Source Pulse Rate 81 Respiratory Rate 16 Respiratory Effort Blood Pressure 145/61 H Blood Pressure Mean 89 Blood Pressure Source Monitor Blood Pressure Location Right Arm Pulse Ox 100 Oxygen Delivery Method Positive well nourished and well developed General Appearance ED: well developed and pallor HEENT HEENT Narrative: Normocephalic atraumatic Eyes PERRL and EOMs intact bilaterally General Eye ED: Negative for scleral icterus Neck supple and no JVD Chest Wall Chest Narrative: There is reproducible pain with palpation of the left anterior chest wall in the intercostal spaces of rib regions 4-6. Patient states this pain is different however than the pain he was experiencing that brought him to the hospital. No bony deformity or crepitance noted Resp normal respiratory effort and clear to auscultation bilaterally Cardio regular rhythm Rate: other Other Details: Bradycardic rate with regular rhythm There is asymmetry of the left radial pulse compared to right, with the left radial pulse being weaker than the right There also appears to be asymmetry of the posterior tibial pulses with the right being weaker than the left. GI non-distended GI Narrative: Mild tenderness to palpation in the midepigastric region without voluntary guarding or rigidity. No obvious pulsatile mass palpated Auscultation: normoactive bowel sounds Palpation: soft Extremity Extremity Narrative: Patient has elongated hand/fingers consistent with history of Marfan syndrome No asymmetric edema pitting edema and negative Homans' sign to the bilateral lower extremities Neuro oriented x3, CN's II-XII intact bilaterally and no sensory deficits noted Sensorium / Orientation: alert Motor Exam: strength 5/5 throughout Psych Psych Narrative: Patient has a flat affect Skin no rashes or lesions noted General Skin Exam: pallor; Negative for jaundice MDM MDM MDM Narrative Medical decision making narrative: Patient presented to the ER with report of sudden onset left-sided chest pain with radiation towards the neck arm and abdomen. He reported shortness of breath associated with this but no vomiting or diaphoresis. His risk factors for cardiovascular disease are low. However he does have Marfan syndrome and chart review reveals he had a echo in February of this year showing a dilated aortic root at 4.8 cm. Based on the patient's sudden onset of pain and the fact he had asymmetric radial pulses there is high concern for a dissection. Other differential diagnoses are acute coronary syndrome versus pneumothorax versus musculoskeletal chest wall pain. Based on the patient's sudden onset of pain and known aortic root dilation a CTA was obtained for dissection. CTA confirmed a [place] type a dissection. The patient was informed of this and request to be transferred to the [facility]. They were contacted and the case was discussed with CT surgeon Dr. Oakley. She recommends keeping the systolic blood pressure less than 120 and therefore Cardene drip was ordered. [facility] was activated secondary to the dissection and will take the patient to the [facility] for further surgical care. History & Record Review Discussion w/independent historian: Patient and Family Lab Data Attestation: I reviewed the patient's lab results. Labs: Laboratory Results - last 24 hr 06/10/23 00:33 WBC 14.8 H RBC 4.76 Hgb 13.6 Hct 41.2 MCV 86.6 MCH 28.6 MCHC 33.0 RDW Std Deviation 40.0 RDW Coeff of Daniel 12.8 Plt Count 232 MPV 10.5 Immature Gran % (Auto) 0.400 Neut % (Auto) 75.7 H Lymph % (Auto) 14.9 L Piatt % (Auto) 8.6 Eos % (Auto) 0.1 Baso % (Auto) 0.3 Absolute Neuts (auto) 11.2 H Absolute Lymphs (auto) 2.20 Nucleated RBC % 0 PT 14.4 INR 1.1 APTT 32.9 Sodium 139 Potassium 3.9 Chloride 109 H Carbon Dioxide 26.0 Anion Gap 4 L BUN 13 Creatinine 1.14 Est GFR (MDRD) Af Amer 92 Est GFR (MDRD) Non-Af 76 BUN/Creatinine Ratio 11.4 Glucose 118 H Calcium 9.2 Magnesium 2.1 Troponin I High Sens 6 Critical Care Time Critical Care Time: Yes Critical care time (excluding procedures): Discussing w/Patient &/or Family/Dairy Equipment Mechanic, Discussing w/Consultants, Arranging Admission or Transfer and - (Critical care time of 37 minutes) Discharge Plan Triage Chief Complaint: Chest Pain ED Provider: Peterson Milton Dx/Rx/DC Orders Clinical Impression: Dissecting aneurysm of thoracic aorta, [place] type A, Marfan syndrome, Bipolar disorder Prescriptions: No Action trazodone 50 mg tablet 50 mg PO QHS lumateperone 42 mg Capsule 42 mg PO DAILY ibuprofen 800 mg tablet 800 mg PO Q8H PRN (Reason: pain) Qty: 20 0RF cholecalciferol (vitamin D3) [Vitamin D3] 25 mcg (1,000 unit) tablet 25 mcg PO DAILY metoprolol succinate 25 mg tablet extended release 24 hr 25 mg PO DAILY Primary Care Provider: Mamta Stinson Referrals: Mamta Stinson, [employer] ATTENDANT-C [Primary Care Provider] - Disposition Disposition: Acute Care Hospital Discharge Location: [facility]
--- NOTE | 2023-06-10 01:35 | ED.RN ---
[facility] CALLED FOR TRANSFER
[2023-06-10] MEDS: NICARdipine 25 MG in 0.9% Normal Saline (250mL Bag) 240 ML 50 MG CONT INF (02:01)
--- NOTE | 2023-06-10 02:54 | ED.RN ---
report called take [facility] nurseJoelle
== END 2023-06-10 02:55 | disposition short-term general hospital (02) ==
PROVIDERS: Emergency Provider Emergency Medicine; PCP Nurse Practitioner Family; Visit Provider Emergency Medicine
DX: I71.010 Dissection of ascending aorta (principal); F31.9 Bipolar disorder, unspecified; Q87.40 Marfan syndrome, unspecified; Z79.899 Other long term (current) drug therapy
CPT/HCPCS: 71275; 74174; 80048; 83735; 84484; 85025; 85610; 85730; 93005; 96361; 96365; 96375; 99285; J7030; J7050; Q9967; A4216; J2405